=== PATIENT | male | born 1980 | race Caucasian/White ===

== ENCOUNTER 2020-12-03 13:40 | Emergency (ER) | payer MEDICARE, OTHER, SELFPAY ==
--- NOTE | ~2020-12-03 | XR_ITS ---
EXAMINATION: XR CHEST CLINICAL INFORMATION: Fevers COMPARISON: None TECHNIQUE: Frontal view of the chest was obtained. FINDINGS: No significant abnormality is noted involving the heart, lungs, mediastinum, bony thorax or soft tissues. XR/XR chest 1V IMPRESSION: Unremarkable examination.
[2020-12-03 14:01] VITALS: BP 110/71; PULSE 90; RESP 18; TEMP 38.2; O2SAT 98; BMI 21.1
--- NOTE | 2020-12-03 14:07 | ED.FEVER ---
HPI - Fever General Chief Complaint: Fever Stated Complaint: FEVER Time Seen by Provider: 12/03/20 14:07 Source: patient Mode of arrival: wheelchair Limitations: no limitations History of Present Illness HPI Narrative: 40 yo male with suprapubic cath and C5 SCI in comes in with c/o fevers x 1-2 days with body aches, he wants to make sure he doesn't have COVID as his is 25 weeks elicited complaint: fever Pertinent past history: other (C5 SCI) Onset (ago): day(s) (1 to 2) Exacerbating factors: nothing Relieving factors: nothing Associated symptoms: myalgias and nasal congestion Treatments prior to arrival fever: acetaminophen (last night) Related Data Previous Rx's Medication Instructions Recorded baclofen 10 mg tablet 25 mg PO Q6H PRN #900 tab 09/15/20 Allergies Allergy/AdvReac Type Severity Reaction Status Date / Time No Known Allergies Allergy Verified 10/31/20 17:59 Review of Systems Review of Systems: Constitutional : positive Fever, positive Chills, no fatigue, no Malaise ENT/Mouth : no sore throat, pos runny nose Eyes: No Discharge Cardiovascular : No Chest Pain, No SOB Respiratory : No Cough, No Sputum Gastrointestinal : No Nausea, No Vomiting, No Diarrhea Genitourinary : No Dysuria, No Urinary Frequency Musculoskeletal : positive Myalgia Skin : No rash Neuro : No Headache PMFSH Past Medical History Attestation statement: The following information was validated with the patient. 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 Mother No problems noted. Social History Social History Alcohol intake: current Alcohol intake frequency: holidays/special occasions only Smoking Status: Never smoker Advance Directives: No Advance Directives Information Provided: No Physical Exam Vital Signs: Vital Signs: Last Vital Signs Temp 100.7 F H 12/03/20 14:01 Pulse 90 12/03/20 14:01 Resp 18 12/03/20 14:01 BP 110/71 12/03/20 14:01 Pulse Ox 98 12/03/20 14:01 Body Mass Index 21.1 Appearance: Alert. Oriented X3. No acute distress. Eyes: Pupils equal, round and reactive to light. ENT: Pharynx normal. Neck: Normal inspection. Neck supple. CVS: Normal heart rate and rhythm. Pulses normal. Respiratory: No respiratory distress. Breath sounds normal. Abdomen: Soft and nontender. Skin: Skin warm and dry. Neuro: Oriented X 3. WC for C5 injury Psych: normal affect Course Course Course Narrative: patient still does not want further workup after negative CXR and covid - wants to go home MDM - Fever MDM Narrative Medical decision making narrative: very pleasant 40 yo male with C5 SCI here with fevers and runny nose - the patient does not want a workup I discussed given his injury that we should do labs, urine (given suprapubic cath), CXR for pneumonia, COVID swab - the patient is well educated, alert and oriented x 3 and only wants a CXR and COVID swab at this time, he states he will monitor himself while at home. Lab Data Labs: Lab Results 12/03/20 Range/Units 14:51 Coronavirus (PCR) NEGATIVE (Negative) Influenza Type A (PCR) NEGATIVE (Negative) Influenza Type B (PCR) NEGATIVE (Negative) RSV RNA Qual (PCR) NEGATIVE (Negative) Discharge Plan Discharge Clinical Impression: Fever Patient Disposition: Home, Self-Care Instructions: Fever in Adults (ED) Additional Instructions: return to ED for any worsening symptoms or concerns your chest xray was negative for pneumonia Prescriptions: No Action baclofen 10 mg tablet 25 mg PO Q6H PRN (Reason: for muscle spasm) Qty: 900 RF: 1 Referrals: Alfonso Quiroz MD [Primary Care Provider] - 2 days
[2020-12-03] MEDS: Acetaminophen 325 MG TABLET 650 MG PO (14:46)
[2020-12-03 15:42] LABS: Influenza A PCR NEGATIVE (Negative); Influenza B PCR NEGATIVE (Negative); Resp Syncy Virus RNA Qual PCR NEGATIVE (Negative); SARS COV2 PCR INHOUSE NEGATIVE (Negative)
== END 2020-12-03 16:16 | disposition home or self-care (01) ==
PROVIDERS: Emergency Provider Emergency Medicine; PCP Internal Medicine
DX: R50.9 Fever, unspecified (principal); Z20.822 Contact with and (suspected) exposure to COVID-19; Z79.899 Other long term (current) drug therapy
CPT/HCPCS: 0241U; 36415; 71045; 99283

== ENCOUNTER 2021-10-09 10:08 | Outpatient (REF) | payer MEDICARE, OTHER, SELFPAY ==
[2021-10-09 11:18] LABS: HBc Num1 0.07 S/CO (0.00-0.79); HBsAGNum1 0.25 S/CO (0.00-0.99); Hepatitis B Core Antibody Nonreactive (Nonreactive); Hepatitis B Surface Antigen Negative (Negative)
[2021-10-09 11:24] LABS: HBS Num1 10.73 mIU/mL (0-7.99)
[2021-10-09 13:46] LABS: HBS Num2 11.46 mIU/mL (0-7.99); HBS Num3 11.66 mIU/mL (0-7.99); ~Hepatitis B Surface Antibody GRAYZONE (Nonreactive)
[2021-10-11 05:29] LABS: Rubella IgG Antibody 3.67 Index; Varicella IgG Antibody >4000.00 index
[2021-10-11 21:17] LABS: TS Negative Control Passed; TS Panel A 0; TS Panel B 0; TS Positive Control Passed; TSpotTB Negative (Negative)
== END 2021-10-09 10:09 | disposition home or self-care (01) ==
LOC: HO.LAB 10:08
PROVIDERS: PCP Internal Medicine; Visit Provider Internal Medicine
DX: Z01.84 Encounter for antibody response examination (principal); Z11.1 Encounter for screening for respiratory tuberculosis
CPT/HCPCS: 36415; 86481; 86704; 86706; 86735; 86762; 86765; 86787; 87340

== ENCOUNTER 2021-11-21 10:10 | Outpatient (REF) | payer MEDICARE, OTHER, SELFPAY ==
[2021-11-24 15:57] LABS: Transglutaminase Ab IgG 1.7 U/mL
[2021-11-26 14:42] LABS: Endomysial IgA Antibody Positive (Negative)
[2021-11-26 14:57] LABS: Endomysial Titer 1:40 titer (<1:5)
== END 2021-11-21 10:11 | disposition home or self-care (01) ==
LOC: HO.LAB 10:10
PROVIDERS: PCP Internal Medicine; Visit Provider Internal Medicine
DX: K90.0 Celiac disease (principal); R19.7 Diarrhea, unspecified
CPT/HCPCS: 36415; 86231; 86364

== ENCOUNTER 2022-01-25 07:34 | Outpatient (REF) | payer MEDICARE, OTHER, SELFPAY ==
[2022-01-25 11:20] LABS: MANUAL DIFF FLAG NO
[2022-01-25 11:28] LABS: Basophils Percent Auto 0.5 % (0-2); Eosinophils Absolute Auto 0.2 X10*3/uL (0.0-0.4); Eosinophils Percent Auto 4.3 % (0-4); Hematocrit 42.2 % (42.0-52.0); Hemoglobin 14.6 g/dl (14.0-18.0); Lymphocytes Absolute Auto 1.9 X10*3/uL (1.2-4.9); Lymphocytes Percent Auto 42.6 % (20-40); Mean Corpuscular HGB Conc 34.6 g/dl (31.0-36.0); Mean Corpuscular Hemoglobin 30.7 pg (27.0-33.0); Mean Corpuscular Volume 88.7 fL (80.0-98.0); Mean Platelet Volume 10.7 fL (9.4-12.4); Monocytes Absolute Auto 0.4 X10*3/uL (0.1-1.2); Monocytes Percent Auto 8.5 % (2-11); Neutrophils Absolute Auto 1.9 x10*3/uL (2.0-8.3); Neutrophils Percent Auto 44.1 % (45-73); Platelet Count 164 X10*3/uL (160-400); Red Blood Count 4.76 X10*6/uL (4.60-5.80); White Blood Count 4.4 X10*3/uL (4.8-10.8)
[2022-01-25 12:03] LABS: TSH reflex Free T4 1.75 uIU/mL (0.32-4.0); Vitamin D 25-OH Total 6.4 ng/mL (>30)
[2022-01-25 12:09] LABS: Alanine Aminotransferase 22 U/L (0-40); Albumin Level 3.9 g/dL (3.5-5.0); Alkaline Phosphatase 64 U/L (39-117); Anion Gap 11 (12-20); Aspartate Amino Transferase 18 U/L (5-37); Bilirubin Total 0.5 mg/dL (0.0-1.0); Blood Urea Nitrogen 14 mg/dL (9-16); Calcium 8.9 mg/dL (8.4-10.2); Carbon Dioxide 27 mmol/L (22-29); Chloride 104 mmol/L (96-108); Cholesterol 131 mg/dL; Estimated Glomerular Filt Rate > 60; Glucose Fasting 98 mg/dL (60-99); HDL Cholesterol 31 mg/dL; LDL Cholesterol Calculated 85 mg/dl; Potassium 4.3 mmol/L (3.3-5.1); Sodium 138 mmol/L (135-145); Total Protein 7.1 g/dL (6.5-8.0); Triglycerides 79 mg/dL
[2022-01-25 12:40] LABS: Folate 3.1 ng/mL (> or = 4.0); Vitamin B12 483 pg/mL (200-900)
[2022-01-27 08:42] LABS: Gliadin Deamidated IgG Ab 145.5 U/mL
== END 2022-01-25 07:35 | disposition home or self-care (01) ==
LOC: HO.HMGCLDS 07:34
PROVIDERS: Visit Provider Internal Medicine
DX: Z00.00 Encounter for general adult medical examination without abnormal findings (principal); K59.00 Constipation, unspecified; E55.9 Vitamin D deficiency, unspecified; E53.8 Deficiency of other specified B group vitamins
CPT/HCPCS: 36415; 80053; 80061; 82306; 82607; 82746; 84443; 85025; 86258

== ENCOUNTER 2022-11-02 15:41 | Emergency (ER) | payer MEDICARE, OTHER, SELFPAY ==
--- NOTE | ~2022-11-02 | XR_ITS ---
EXAMINATION: XR ABDOMEN KUB CLINICAL INDICATION: Constipation. Lower abdominal pain. COMPARISON: 01/16/2022 TECHNIQUE: AP view of the abdomen. FINDINGS: Moderate to large volume of stool is evident throughout the colon with a large stool ball at the rectum. Nondilated bowel gas pattern. No gross evidence of pneumoperitoneum. An IVC filter overlies the right aspect of the L2 vertebral body. No pathologic calcifications are identified. A suprapubic catheter is in place. No acute osseous findings. XR/XR KUB IMPRESSION: Moderate to large volume of stool throughout the colon.
[2022-11-02 16:20] VITALS: BP 169/119; PULSE 94; RESP 20; TEMP 36.8; O2SAT 96; BMI 19.8
--- NOTE | 2022-11-02 16:21 | ED_ITS ---
HPI - Abdominal Pain General Chief Complaint: General Medical <Brianne Haley CNP - Last Filed: 11/02/22 16:27> Stated Complaint: Constipation <Brianne Haley CNP - Last Filed: 11/02/22 16:27> Time Seen by Provider: 11/02/22 16:48 <Brianne Haley CNP - Last Filed: 11/02/22 16:27> Source: patient <Sharona Peterson NP - Last Filed: 11/03/22 00:33> Mode of arrival: wheelchair <Sharona Peterson NP - Last Filed: 11/03/22 00:33> Limitations: physical limitation (Quadriplegia) <Sharona Peterson NP - Last Filed: 11/03/22 00:33> History of Present Illness HPI narrative: 42-year-old male with quadriplegia and dystonia presents for constipation. He states he has been constipated for several days and feels that he needs to be disimpacted. <Sharona Peterson NP - Last Filed: 11/03/22 00:33> MD elicited complaint: abdominal pain <Sharona Peterson NP - Last Filed: 11/03/22 00:33> Pertinent past history: constipation <Sharona Peterson NP - Last Filed: 11/03/22 00:33> Onset (ago): day(s) (5) <Sharona Peterson NP - Last Filed: 11/03/22 00:33> Pain Consistency: constant <Sharona Peterson NP - Last Filed: 11/03/22 00:33> Location: diffuse <Sharona Peterson NP - Last Filed: 11/03/22 00:33> Severity: moderate <Sharona Peterson NP - Last Filed: 11/03/22 00:33> Quality: cramping, aching and fullness <Sharona Peterson NP - Last Filed: 11/03/22 00:33> Relieving factors: nothing <Sharona Peterson NP - Last Filed: 11/03/22 00:33> Associated symptoms: denies other symptoms <Sharona Peterson NP - Last Filed: 11/03/22 00:33> Related Data Home Medications: Home Medications Medication Instructions Recorded Confirmed solifenacin 10 mg tablet 10 mg PO DAILY 12/06/21 12/06/21 vibegron 75 mg tablet (Gemtesa) mg PO DAILY 07/07/22 Previous Rx's Medication Instructions Recorded miscellaneous medical supply 1 ea miscellaneous DAILY spinal 03/19/22 cord injury 12 months #1 ea baclofen 10 mg tablet 25 mg PO Q6H PRN for muscle spasm 04/19/22 #900 tabs hydrocortisone acetate 25 mg 25 mg WA BID #12 ea 07/07/22 rectal suppository (Anusol-HC) <Brianne Haley CNP - Last Filed: 11/02/22 16:27> Allergies/Adverse Reactions: Allergies Allergy/AdvReac Type Severity Reaction Status Date / Time No Known Allergies Allergy Verified 07/07/22 10:39 <Brianne Haley CNP - Last Filed: 11/02/22 16:27> Review of Systems Review of Systems Constitutional: No Fever, No Chills Cardiovascular: No Chest Pain, No SOB Respiratory: No Cough, No Dyspnea Gastrointestinal: No Nausea, No Vomiting, No Diarrhea, positive abdominal Pain, positive constipation Genitourinary: Chronic Finney Musculoskeletal: No joint pain, No Myalgias, No Joint Swelling Skin: No Skin lacerations, No rash Neuro: Quadriplegia <Sharona Peterson NP - Last Filed: 11/03/22 00:33> Yes all other systems are reviewed and are negative <Sharona Peterson NP - Last Filed: 11/03/22 00:33> PMFSH Past Medical History Attestation statement: The following information was validated with the patient. <Sharona Peterson NP - Last Filed: 11/03/22 00:33> Source: old records reviewed <Sharona Peterson NP - Last Filed: 11/03/22 00:33> Medical History: Medical History Atelectasis of left lung Celiac disease Cervical spinal cord injury (~2001) Hypotonic bladder Hypotonic neurogenic bladder Quadriplegia following spinal cord injury Skin rash Spinal cord injury Urinary bladder stone <Brianne Haley CNP - Last Filed: 11/02/22 16:27> Surgical History: Surgical History History of fusion of cervical spine Status post cystoscopy (~10/06/20) <Brianne Haley CNP - Last Filed: 11/02/22 16:27> Family History Family History: Family History Father No problems noted. Mother No problems noted. Other Mental health problem <Biranne Haley CNP - Last Filed: 11/02/22 16:27> Social History Social History: Social History Alcohol intake: never Patient Tobacco Use Status: Never used Tobacco Smoked in Last 30 Days: No Second Hand Smoke Exposure: No Use of substances other than those prescribed or required for medical reasons: No Advance Directives: No Advance Directives Information Provided: Yes <Brianne Haley CNP - Last Filed: 11/02/22 16:27> Physical Exam ED Vital Signs: Vital Signs - 24 hr 11/02/22 16:20 11/02/22 18:30 Temperature 98.3 F 98.2 F Pulse Rate 94 79 Respiratory Rate 20 12 Blood Pressure 169/119 H 127/83 Pulse Oximetry 96 96 Oxygen Delivery Method Room Air Room Air BMI result Body Mass Index 19.8 <Brianne Haley CNP - Last Filed: 11/02/22 16:27> Vital Signs - 24 hr 11/02/22 16:20 11/02/22 18:30 Temperature 98.3 F 98.2 F Pulse Rate 94 79 Respiratory Rate 20 12 Blood Pressure 169/119 H 127/83 Pulse Oximetry 96 96 Oxygen Delivery Method Room Air Room Air BMI result Body Mass Index 19.8 <Sharona Peterson NP - Last Filed: 11/03/22 00:33> Appearance: Alert. Oriented X3. No acute distress. Eyes: Pupils equal, round and reactive to light. ENT: Pharynx normal. Neck: Normal inspection. Neck supple. CVS: Normal heart rate and rhythm. Pulses normal. Respiratory: No respiratory distress. Breath sounds normal. Abdomen: Soft and nontender. Skin: Skin warm and dry. Normal skin color. Normal skin turgor. Neuro: Cranial nerves 2-12 intact <Sharona Peterson NP - Last Filed: 11/03/22 00:33> Course Course Course Narrative: This is an RME: Additional HPI, ROS, PE not included below will be deferred to primary provider. Patient is a 42-year-old male who presents emergency department for evaluation of constipation, diffuse lower abdominal pain, elevated blood pressure, headaches, fevers, chills. 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 Reports a large bowel movement 3 days ago, but despite the use of medications he continues to feel very constipated. Has a chronic suprapubic catheter. Denies nausea, vomiting, chest pain, shortness of breath, cough, upper respiratory symptoms. Plan: Labs, KUB, urinalysis. <Brianne Haley CNP - Last Filed: 11/02/22 16:27> This is an RME: Additional HPI, ROS, PE not included below will be deferred to primary provider. Patient is a 42-year-old male who presents emergency department for evaluation of constipation, diffuse lower abdominal pain, elevated blood pressure, headaches, fevers, chills. 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 Reports a large bowel movement 3 days ago, but despite the use of medications he continues to feel very constipated. Has a chronic suprapubic catheter. Denies nausea, vomiting, chest pain, shortness of breath, cough, upper respiratory symptoms. Plan: Labs, KUB, urinalysis. 42-year-old male presents for constipation. 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 He has had a chronic Finney in place since then. Alert oriented x4, pleasant. KUB indicates large stool burden, fleets enema unsuccessful. Plan of care is for digital disimpaction. This BUSINESS DEVELOPMENT OFFICER and cardiac monitor technician present as filling station laborer, large stools disimpacted from rectal vault. Patient does have large hemorrhoids and had some bleeding, order for dibucaine and hydrocortisone ointment for comfort. Urinalysis is positive for leukocyte esterase however this patient has had a chronic Finney and is colonized. No further treatment required for this finding. <Sharona Peterson NP - Last Filed: 11/03/22 00:33> Medical Decision Making Differential Diagnosis Differential Diagnoses: The differential diagnosis associated with the presentation includes <Sharona Peterson NP - Last Filed: 11/03/22 00:33> Constipation, obstipation <Anatolymely Kristen, BUSINESS DEVELOPMENT OFFICER - Last Filed: 11/03/22 00:33> Lab Data MDM Lab Attestation statement: I reviewed the patient's lab results. <Sharona Peterson NP - Last Filed: 11/03/22 00:33> Result Diagrams: 11/02/22 16:41 11/02/22 16:41 <Brianne Haley, DEMAND GENERATOR MANAGER - Last Filed: 11/02/22 16:27> Labs: Lab Results 11/02/22 11/02/22 11/02/22 Range/Units 16:41 16:41 16:53 WBC 9.1 (4.8-10.8) X10*3/uL RBC 5.59 (4.60-5.80) X10*6/uL Hgb 16.3 (14.0-18.0) g/dl Hct 47.5 (42.0-52.0) % MCV 85.0 (80.0-98.0) fL MCH 29.2 (27.0-33.0) pg MCHC 34.3 (31.0-36.0) g/dl RDW 12.5 (11.0-16.0) % Plt Count 162 (160-400) X10*3/uL MPV 9.3 L (9.4-12.4) fL Immature Gran % (Auto) 0.2 (0.0-0.4) % Neut % (Auto) 64.3 (45-73) % Lymph % (Auto) 23.4 (20-40) % [place] % (Auto) 9.0 (2-11) % Eos % (Auto) 2.9 (0-4) % Baso % (Auto) 0.2 (0-2) % Lymph # (Auto) 2.1 (1.2-4.9) X10*3/uL [place] # (Auto) 0.8 (0.1-1.2) X10*3/uL Eos # (Auto) 0.3 (0.0-0.4) X10*3/uL Baso # (Auto) 0.0 (0.0-0.2) X10*3/uL Abs Immat Gran (auto) 0.02 (0.00-0.03) X10*3/uL Absolute Neuts (auto) 5.8 (2.0-8.3) x10*3/uL Absolute Nucleated RBC 0.000 (0.0-0.012) X10*3/uL Nucleated RBC % (auto) 0.0 (0.0-0.2) /100WBC Sodium 140 (135-145) mmol/L Potassium 4.0 (3.3-5.1) mmol/L Chloride 105 (96-108) mmol/L Carbon Dioxide 25 (22-29) mmol/L Anion Gap 14 (12-20) BUN 8 L (9-16) mg/dL Creatinine 0.70 (0.5-1.4) mg/dL Estim Creat Clear Calc 115.8 Estimated GFR > 60 Random Glucose 94 (60-115) mg/dL Calcium 9.2 (8.4-10.2) mg/dL Total Bilirubin 0.7 (0.0-1.0) mg/dL AST 17 (5-37) U/L ALT 18 (0-40) U/L Alkaline Phosphatase 84 (39-117) U/L Total Protein 7.6 (6.5-8.0) g/dL Albumin 4.4 (3.5-5.0) g/dL Lipase 8 (8-78) U/L Urine Color Yellow Urine Appearance Cloudy Urine pH 8.5 (5.0-9.0) Ur Specific [place] 1.010 (1.005-1.025) Urine Protein 100 (2+) H (Neg-Trace) mg/dL Urine Glucose (UA) Negative (Negative) mg/dL Urine Ketones Negative (Negative) mg/dL Urine Blood Large (3+) H (Negative) Urine Nitrite Negative (Negative) Ur Leukocyte Esterase Large (3+) H (Negative) Urine RBC 11-20 H (0-2) /HPF Urine WBC 11-20 H (0-5) /HPF Ur Squamous Epith Cells 0-2 (0-2) /HPF Urine Bacteria 4+ (None Seen) Hyaline Casts 0-2 (0-2) /LPF <Brianne Concepcionml Haley, DEMAND GENERATOR MANAGER - Last Filed: 11/02/22 16:27> Lab Results 11/02/22 11/02/22 11/02/22 Range/Units 16:41 16:41 16:53 WBC 9.1 (4.8-10.8) X10*3/uL RBC 5.59 (4.60-5.80) X10*6/uL Hgb 16.3 (14.0-18.0) g/dl Hct 47.5 (42.0-52.0) % MCV 85.0 (80.0-98.0) fL MCH 29.2 (27.0-33.0) pg MCHC 34.3 (31.0-36.0) g/dl RDW 12.5 (11.0-16.0) % Plt Count 162 (160-400) X10*3/uL MPV 9.3 L (9.4-12.4) fL Immature Gran % (Auto) 0.2 (0.0-0.4) % Neut % (Auto) 64.3 (45-73) % Lymph % (Auto) 23.4 (20-40) % [place] % (Auto) 9.0 (2-11) % Eos % (Auto) 2.9 (0-4) % Baso % (Auto) 0.2 (0-2) % Lymph # (Auto) 2.1 (1.2-4.9) X10*3/uL [place] # (Auto) 0.8 (0.1-1.2) X10*3/uL Eos # (Auto) 0.3 (0.0-0.4) X10*3/uL Baso # (Auto) 0.0 (0.0-0.2) X10*3/uL Abs Immat Gran (auto) 0.02 (0.00-0.03) X10*3/uL Absolute Neuts (auto) 5.8 (2.0-8.3) x10*3/uL Absolute Nucleated RBC 0.000 (0.0-0.012) X10*3/uL Nucleated RBC % (auto) 0.0 (0.0-0.2) /100WBC Sodium 140 (135-145) mmol/L Potassium 4.0 (3.3-5.1) mmol/L Chloride 105 (96-108) mmol/L Carbon Dioxide 25 (22-29) mmol/L Anion Gap 14 (12-20) BUN 8 L (9-16) mg/dL Creatinine 0.70 (0.5-1.4) mg/dL Estim Creat Clear Calc 115.8 Estimated GFR > 60 Random Glucose 94 (60-115) mg/dL Calcium 9.2 (8.4-10.2) mg/dL Total Bilirubin 0.7 (0.0-1.0) mg/dL AST 17 (5-37) U/L ALT 18 (0-40) U/L Alkaline Phosphatase 84 (39-117) U/L Total Protein 7.6 (6.5-8.0) g/dL Albumin 4.4 (3.5-5.0) g/dL Lipase 8 (8-78) U/L Urine Color Yellow Urine Appearance Cloudy Urine pH 8.5 (5.0-9.0) Ur Specific [place] 1.010 (1.005-1.025) Urine Protein 100 (2+) H (Neg-Trace) mg/dL Urine Glucose (UA) Negative (Negative) mg/dL Urine Ketones Negative (Negative) mg/dL Urine Blood Large (3+) H (Negative) Urine Nitrite Negative (Negative) Ur Leukocyte Esterase Large (3+) H (Negative) Urine RBC 11-20 H (0-2) /HPF Urine WBC 11-20 H (0-5) /HPF Ur Squamous Epith Cells 0-2 (0-2) /HPF Urine Bacteria 4+ (None Seen) Hyaline Casts 0-2 (0-2) /LPF <Sharona Peterson NP - Last Filed: 11/03/22 00:33> Independent Interpretation I performed an independent interpretation of an: Plain X-Ray <Sharona Peterson NP - Last Filed: 11/03/22 00:33> Radiology Impression Discussion of test interpretation with radiology: I have reviewed the radiologist's reading. <Sharona Peterson NP - Last Filed: 11/03/22 00:33> Radiologist Impression: EXAMINATION: XR ABDOMEN KUB CLINICAL INDICATION: Constipation. Lower abdominal pain.? COMPARISON: 01/16/2022? TECHNIQUE: AP view of the abdomen. FINDINGS: Moderate to large volume of stool is evident throughout the colon with a large stool ball at the rectum. Nondilated bowel gas pattern. No gross evidence of pneumoperitoneum. An IVC filter overlies the right aspect of the L2 vertebral body. No pathologic calcifications are identified. A suprapubic catheter is in place. No acute osseous findings. XR/XR KUB IMPRESSION: Moderate to large volume of stool throughout the colon. <Sharona Peterson NP - Last Filed: 11/03/22 00:33> External Record Review External record reviewed: Outpatient record <Sharona Peterson NP - Last Filed: 11/03/22 00:33> Chronic Conditions Patient?s care impacted by: Other (Quadriplegia, neurogenic bladder, autonomic dysreflexia) <Sharona Peterson NP - Last Filed: 11/03/22 00:33> Medications Administered Discontinued Medications Generic Name Dose Route Start Last Admin Trade Name Freq PRN Reason Stop Dose Admin Sodium Biphosphate/Sodium Phosphate 133 ml 11/02/22 16:56 11/02/22 17:23 Sodium Phosphate,[place]-Dibasic 133 Ml Enema [place] 11/02/22 16:57 133 ml ONCE ONE Administration <Brianne Haley CNP - Last Filed: 11/02/22 16:27> Medications Administered Discontinued Medications Generic Name Dose Route Start Last Admin Trade Name Freq PRN Reason Stop Dose Admin Sodium Biphosphate/Sodium Phosphate 133 ml 11/02/22 16:56 11/02/22 17:23 Sodium Phosphate,[place]-Dibasic 133 Ml Enema [place] 11/02/22 16:57 133 ml ONCE ONE Administration <Sharona Peterson NP - Last Filed: 11/03/22 00:33> Discharge Plan Discharge Clinical Impression: Quadriplegia following spinal cord injury, Constipation, Bleeding hemorrhoids <Brianne Haley CNP - Last Filed: 11/02/22 16:27> Patient Disposition: Home, Self-Care <Brianne Haley CNP - Last Filed: 11/02/22 16:27> Instructions: Constipation (ED), Hemorrhoids (ED), Thrombosed Hemorrhoid (ED) <Brianne Haley CNP - Last Filed: 11/02/22 16:27> Additional Instructions: You were evaluated for constipation. We digitally disimpacted you. Your hemorrhoids are irritated and bleeding. Used dibucaine and hydrocortisone as directed. Thank you for choosing this emergency department for evaluation. Please follow-up with primary care physician as needed. Return to the emergency department for any new, concerning, or worsening symptoms. <Brianne Haley CNP - Last Filed: 11/02/22 16:27> Prescriptions: No Action miscellaneous medical supply Misc 1 ea miscellaneous DAILY 360 Days Qty: 1 0RF Rx Instructions: Wheelchair Cushion baclofen 10 mg tablet 25 mg PO Q6H PRN (Reason: for muscle spasm) Qty: 900 1RF solifenacin 10 mg tablet 10 mg PO DAILY Label Comments: [facility] - for bladder spasms Gemtesa 75 mg tablet PO DAILY hydrocortisone acetate [Anusol-HC] 25 mg suppository 25 mg [place] BID Qty: 12 0RF Rx Instructions: Maximum of 4 doses a week for 2 weeks <Brianne Haley CNP - Last Filed: 11/02/22 16:27> Interventions: ED Discharge Assessment Last Done: 11/02/22 19:30 <Brianne Haley CNP - Last Filed: 11/02/22 16:27> Discharge Date/Time: 11/02/22 19:33 <Brianne Haley CNP - Last Filed: 11/02/22 16:27>
[2022-11-02 16:45] LABS: MANUAL DIFF FLAG NO
[2022-11-02 16:46] LABS: Basophils Percent Auto 0.2 % (0-2); Eosinophils Absolute Auto 0.3 X10*3/uL (0.0-0.4); Eosinophils Percent Auto 2.9 % (0-4); Hematocrit 47.5 % (42.0-52.0); Hemoglobin 16.3 g/dl (14.0-18.0); Imm Gran Abs Auto 0.02 X10*3/uL (0.00-0.03); Imm Gran Pct Auto 0.2 % (0.0-0.4); Lymphocytes Absolute Auto 2.1 X10*3/uL (1.2-4.9); Lymphocytes Percent Auto 23.4 % (20-40); Mean Corpuscular HGB Conc 34.3 g/dl (31.0-36.0); Mean Corpuscular Hemoglobin 29.2 pg (27.0-33.0); Mean Platelet Volume 9.3 fL (9.4-12.4); Monocytes Absolute Auto 0.8 X10*3/uL (0.1-1.2); Neutrophils Absolute Auto 5.8 x10*3/uL (2.0-8.3); Neutrophils Percent Auto 64.3 % (45-73); Platelet Count 162 X10*3/uL (160-400); Red Blood Count 5.59 X10*6/uL (4.60-5.80); Red Cell Distribution Width 12.5 % (11.0-16.0); White Blood Count 9.1 X10*3/uL (4.8-10.8)
[2022-11-02 17:04] LABS: Alanine Aminotransferase 18 U/L (0-40); Albumin Level 4.4 g/dL (3.5-5.0); Alkaline Phosphatase 84 U/L (39-117); Anion Gap 14 (12-20); Aspartate Amino Transferase 17 U/L (5-37); Bilirubin Total 0.7 mg/dL (0.0-1.0); Blood Urea Nitrogen 8 mg/dL (9-16); Calcium 9.2 mg/dL (8.4-10.2); Carbon Dioxide 25 mmol/L (22-29); Chloride 105 mmol/L (96-108); Creatinine Clr Calc Pharmacy 115.8; Estimated Glomerular Filt Rate > 60; Glucose Random 94 mg/dL (60-115); Lipase 8 U/L (8-78); Sodium 140 mmol/L (135-145); Total Protein 7.6 g/dL (6.5-8.0)
[2022-11-02 17:20] LABS: Appearance Urine Cloudy; Color Urine Yellow; Glucose Urine UA Negative (Negative); Leukocyte Esterase Urine Large (3+) (Negative); Nitrite Urine Negative (Negative); PH 8.5 (5.0-9.0); UMIC TRIGGER UACC YES; Urine Blood Large (3+) (Negative); Urine Ketones Negative (Negative); Urine Protein 100 (2+) mg/dL (Neg-Trace)
[2022-11-02] MEDS: Sodium Phosphate,Mono-Dibasic 133 ML ENEMA PR (17:23)
[2022-11-02 17:34] LABS: Bacteria Urine 4+ (None Seen); Hyaline Casts Urine 0-2 /LPF (0-2); Squamous Epithelial Cell Urine 0-2 /HPF (0-2); UACC Culture Trigger YES
[2022-11-02 18:30] VITALS: BP 127/83; PULSE 79; RESP 12; TEMP 36.8; O2SAT 96
--- NOTE | 2022-11-02 19:32 | PC.NURSE ---
Discharge instructions given and explained to pt. Pt is wheelchair bound. Pt left with , no apparent distress, alert and oriented, medicated on discharge.
== END 2022-11-02 19:33 | disposition home or self-care (01) ==
PROVIDERS: Nurse Practitioner Family; Emergency Provider Emergency Medicine; PCP Internal Medicine
DX: K59.00 Constipation, unspecified (principal); R10.30 Lower abdominal pain, unspecified; Z79.899 Other long term (current) drug therapy
CPT/HCPCS: 36415; 74018; 80053; 81001; 83690; 85025; 87086; 99284

== ENCOUNTER 2022-11-04 09:48 | Emergency (ER) | payer MEDICARE, OTHER, SELFPAY ==
[2022-11-04 09:58] VITALS: BP 175/104; PULSE 63; RESP 16; TEMP 36.6; O2SAT 98; BMI 19.8
[2022-11-04 10:50] VITALS: BP 145/91; PULSE 54; RESP 14; TEMP 36.5; O2SAT 97
--- NOTE | 2022-11-04 11:10 | PC.NURSE ---
pt is a/o x 4 no sob/mauricio noted speaks in full sentences. lungs - cta. heart sounds regular. abd soft and non-tender. bx + x 4 quads. no edema noted. bladder appears non-distended. pt has a suprapubic cath which appears to be draining clear yellow urine. urine to be sent to lab. pt states minimal drainage from suprabic cath since saturday.
[2022-11-04 11:24] LABS: Appearance Urine Cloudy; Color Urine Yellow; Glucose Urine UA Negative (Negative); Leukocyte Esterase Urine Large (3+) (Negative); Nitrite Urine Negative (Negative); PH 7.5 (5.0-9.0); UMIC TRIGGER UACC YES; Urine Blood Moderate (2+) (Negative); Urine Ketones Negative (Negative); Urine Protein 100 (2+) mg/dL (Neg-Trace)
[2022-11-04 11:34] LABS: Bacteria Urine 4+ (None Seen); Other Crystals Urine Present; Squamous Epithelial Cell Urine 0-2 /HPF (0-2); UACC Culture Trigger YES; WBC Urine >50 /HPF (0-5)
--- NOTE | 2022-11-04 11:50 | ED.MALEGU ---
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 The patient was here on Saturday11/02/2022 for constipation requiring disimpact and enema. He states that since he was constipated he was having spasms of his lower extremities as well as spasm of the bladder. Patient has a chronic indwelling 24 Belgian Finney catheter he states that he has been draining less fluid and he is concerned that the catheter is malfunctioned. He states that this happened in the past he has required a Finney catheter change. The patient states that he has had some slight fatigue and sweats. He denied fever, chills, nausea, vomiting. Related Data Home Medications Medication Instructions Recorded Confirmed solifenacin 10 mg tablet 10 mg PO DAILY 12/06/21 12/06/21 vibegron 75 mg tablet (Gemtesa) mg PO DAILY 07/07/22 Previous Rx's Medication Instructions Recorded miscellaneous medical supply 1 ea miscellaneous DAILY spinal 03/19/22 cord injury 12 months #1 ea baclofen 10 mg tablet 25 mg PO Q6H PRN for muscle spasm 04/19/22 #900 tabs hydrocortisone acetate 25 mg 25 mg VT BID #12 ea 07/07/22 rectal suppository (Anusol-HC) Allergies Allergy/AdvReac Type Severity Reaction Status Date / Time No Known Allergies Allergy Verified 07/07/22 10:39 Review of Systems Review of Systems: Yes all other systems are reviewed and are negative PMFSH Past Medical History Medical History Atelectasis of left lung Celiac disease Cervical spinal cord injury (~2001) Hypotonic bladder Hypotonic neurogenic bladder Quadriplegia following spinal cord injury Skin rash Spinal cord injury Urinary bladder stone Surgical History History of fusion of cervical spine Status post cystoscopy (~10/06/20) Family History Family History Father No problems noted. Mother No problems noted. Other Mental health problem Social History Social History Alcohol intake: never Patient Tobacco Use Status: Never used Tobacco Smoked in Last 30 Days: No Second Hand Smoke Exposure: No Use of substances other than those prescribed or required for medical reasons: No Advance Directives: No Advance Directives Information Provided: Yes Physical Exam Vital Signs: Vital Signs: Last Vital Signs Temp 97.7 F 11/04/22 10:50 Pulse 54 11/04/22 10:50 Resp 14 11/04/22 10:50 BP 145/91 H 11/04/22 10:50 Pulse Ox 97 11/04/22 10:50 O2 Del Method 11/04/22 10:50 BMI result Body Mass Index 19.8 Vital signs reviewed are normal General: awake, alert, male patient, pleasant, cooperative in no distress Abdominal : The patient has an indwelling Finney catheter which is 24 Belgian, 30 cc balloon. There is no urine leaking around the catheter. Patient's abdomen is nondistended, his normoactive bowel sounds, no localizing tenderness Medical Decision Making Medical Decision Making MDM Narrative: 42-year-old male with a history of quadriplegia secondary to spinal cord injury with neurogenic bladder with a chronic indwelling Finney catheter who presents emergency department for increased bladder spasm and dysfunction of his Finney catheter. Patient has not had any concerning systemic signs for infection. The patient's suprapubic Finney catheter was changed by me. Urine was sent prior to changing the catheter and I will send off a urinalysis on a new urine specimen in the clean Finney bag. 1303: Laboratory interpretation by me: It is urinalysis 2+ blood, 3+ leukocyte esterase. Microscopic 6-10 rbc's, greater than 50 WBCs, 0-2 squamous, crystals present, 4+ bacteria. Urine culture from 11/02/2022 revealed mixed hira. At this time, I do not think the patient has urinary tract infection and the urinalysis most likely represents colonization. The patient will not be treated with antibiotics unless he grows a significant organism out of his urine or if he becomes symptomatic. Patient will be discharged home and advised to follow-up with his urologist for further treatment. Differential Diagnosis Differential diagnosis includes was not limited to urinary tract infection, blocked catheter, Lab Data [facility] Lab Attestation statement: I reviewed the patient's lab results. Please see [facility] for my discussion of the laboratory findings Labs: Lab Results 11/04/22 Range/Units 11:15 Urine Color Yellow Urine Appearance Cloudy Urine pH 7.5 (5.0-9.0) Ur Specific [place] 1.010 (1.005-1.025) Urine Protein 100 (2+) H (Neg-Trace) mg/dL Urine Glucose (UA) Negative (Negative) mg/dL Urine Ketones Negative (Negative) mg/dL Urine Blood Moderate (2+) H (Negative) Urine Nitrite Negative (Negative) Ur Leukocyte Esterase Large (3+) H (Negative) Urine RBC 6-10 H (0-2) /HPF Urine WBC >50 H (0-5) /HPF Ur Squamous Epith Cells 0-2 (0-2) /HPF Other Crystals Present Urine Bacteria 4+ (None Seen) Hyaline Casts 11-20 (0-2) /LPF Independent Historian Clinical information obtained from an independent historian. History obtained from or confirmed by: Spouse Prescription Management I considered prescription management with: Antibiotic Procedures Procedure Narrative Procedure Narrative: Suprapubic catheter change: I did discuss the procedure with the patient he did give me informed verbal consent to proceed. The 24 Belgian 10 cc balloon was inflated with 10 cc in the balloon held pressure without difficulty. The patient's suprapubic stoma/inserted catheter was cleaned with 3 Betadine swabs. 50 cc of sterile water was injected into the patient's bladder to expand the bladder. 10 cc of fluid was removed from the old catheters balloon. Catheter was withdrawn and a new lubricated 24 Belgian Finney catheter was inserted through the stoma without any difficulty. 10 cc of sterile water was injected into the new Finney catheter. The patient tolerated the procedure well. Discharge Plan Discharge Clinical Impression: Blocked suprapubic catheter, Catheter (urine) change required Patient Disposition: Home, Self-Care Additional Instructions: I changed your previous suprapubic catheter and put in a 24 Belgian Finney catheter with a 10 cc balloon. I put 10 cc of sterile water in the balloon. Your urinalysis was positive for bacteria, white blood cells and red blood cells but you are not symptomatic , there we will not treat you with antibiotics at this time unless you grow a significant bacteria out of your urine. Your urinalysis from 11/02/2021 also showed bacteria, white blood cells and red blood cells in you grew mixed hira which is not significant and this suggest that you have colonization of your bladder with bacteria that is not harmful. Follow-up with your urology for further care Please return to the emergency department if your symptoms get worse or if you develop any symptoms that are concerning to you. Prescriptions: No Action miscellaneous medical supply Misc 1 ea miscellaneous DAILY 360 Days Qty: 1 0RF Rx Instructions: Wheelchair Cushion baclofen 10 mg tablet 25 mg PO Q6H PRN (Reason: for muscle spasm) Qty: 900 1RF solifenacin 10 mg tablet 10 mg PO DAILY Label Comments: Vesicare - for bladder spasms Gemtesa 75 mg tablet PO DAILY hydrocortisone acetate [Anusol-HC] 25 mg suppository 25 mg VT BID Qty: 12 0RF Rx Instructions: Maximum of 4 doses a week for 2 weeks
[2022-11-04 13:28] VITALS: BP 92/40; PULSE 76; RESP 17; TEMP 36.5; O2SAT 96
[2022-11-04 13:30] LABS: Appearance Urine Clear; Color Urine Yellow; Glucose Urine UA Negative (Negative); Leukocyte Esterase Urine Moderate (2+) (Negative); Nitrite Urine Negative (Negative); UMIC TRIGGER UACC YES; Urine Blood Moderate (2+) (Negative); Urine Ketones Trace mg/dL (Negative); Urine Protein 100 (2+) mg/dL (Neg-Trace)
[2022-11-04 13:32] LABS: Bacteria Urine None Seen (None Seen); Hyaline Casts Urine 0-2 /LPF (0-2); RBC Urine >20 /HPF (0-2); Squamous Epithelial Cell Urine 0-2 /HPF (0-2); UACC Culture Trigger YES; WBC Urine 21-50 /HPF (0-5)
== END 2022-11-04 13:47 | disposition home or self-care (01) ==
PROVIDERS: Emergency Provider Emergency Medicine Emergency Medical Services; PCP Internal Medicine
DX: N31.9 Neuromuscular dysfunction of bladder, unspecified (principal); K59.00 Constipation, unspecified; T83.098A Other mechanical complication of other urinary catheter, initial encounter; Y73.8 Miscellaneous gastroenterology and urology devices associated with adverse incidents, not elsewhere classified; Y92.9 Unspecified place or not applicable; Z79.899 Other long term (current) drug therapy
CPT/HCPCS: 51702; 81001; 87086; 99284

== ENCOUNTER 2023-12-16 16:03 | Outpatient (AMB) | payer MEDICARE, OTHER, SELFPAY ==
[2023-12-16 16:16] VITALS: BP 122/80; PULSE 66; O2SAT 98
--- NOTE | 2023-12-16 16:16 | A.OFFPC_ITS ---
Vital Signs 12/16/23 16:16 Height 5 ft 8 in BMI Reason not done Patient refused/unable BP 122/80 Blood Pressure Location Lt brachial Position Sitting Pulse 66 Pulse Source Pulse Oximeter Pulse Oximetry (%) 98 Oxygen Delivery Method Room Air Intake Visit Reasons: Annual Exam Front Office Spec Required: No Accompanied by: Self / Same As Patient Allergies No Known Allergies Allergy (Verified 12/16/23 17:14) Medication List - Last Reconciled 12/16/23 by Alfonso Quiroz MD baclofen 25 mg (2.5 x 10 mg) PO Q6H 90 days cholecalciferol (vitamin D3) 50 mcg PO DAILY 90 days methenamine hippurate 1 g PO BID miscellaneous medical supply 1 ea miscellaneous DAILY 12 months nystatin 1 appl topical TID 10 days polyethylene glycol 3350 (Miralax) 17 grams PO DAILY sennosides (senna) 8.6 mg PO BEDTIME solifenacin 10 mg PO DAILY Tobacco use date assessed: 12/16/23 Dental Screening Dental Screen Date: 12/16/23 Did you have a dental visit in the last 12 months?: Yes Did you have a dental problem in the last 6 months where you did not have access to dental care?: No Was dental information given to patient?: Patient has dentist HPI Annual Exam HPI Details Patient comes in today for his annual physical examination States that he feels okay He denies any headaches or dizziness Denies any chest pains, no shortness of breath No nausea /vomiting, no abdominal pain No change in bowel habits noted - he continues to take MiraLax daily and has been able to keep his bowel regimen controlled; still has to take his stool softener (Senna) occasionally when needed He has a urinary catheter in place for his neurogenic bladder related to his spinal cord injury and this is changed regularly by urology every 3 to 4 weeks Patient moves around with a wheelchair as he has quadriplegia arising from an 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 while wrestling back in 2001 He was not able to get his previously ordered labs done prior to today's appointment [facility] Medical History Constipation Vitamin D deficiency Celiac disease Skin rash Urinary bladder stone 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 Mother No problems noted. Other Mental health problem Social History Housing: House Alcohol intake: never Patient Tobacco Use Status: Never used Tobacco e-Cigarette/Vaping Use: Never Used Second Hand Smoke Exposure: No service: No Current occupational status: employed Cognitive needs: No Hearing needs: No Vision needs: No Questionnaire PHQ-9 Over the last 2 weeks, how often have you been bothered by any of the following problems? 1. Little interest or pleasure in doing things: not at all 2. Feeling down, depressed, or hopeless: not at all 3. Trouble falling or staying asleep, or sleeping too much: not at all 4. Feeling tired or having little energy: not at all 5. Poor appetite or overeating: not at all 6. Feeling bad about yourself - or that you are a failure or have let yourself or your family down: not at all 7. Trouble concentrating on things, such as reading the newspaper or watching television: not at all 8. Moving or speaking so slowly that other people could have noticed. Or the opposite - being so fidgety or restless that you have been moving around a lot more than usual: not at all 9. Thoughts that you would be better off or of hurting yourself in some way: not at all Total score: 0 Depression Screening Interpretation: Negative Depression Screening Done: Yes [id number] - PHQ-9 Billing: Yes Source: Developed by Drs. Rudi Will, Lilliam Hilario, Hair Keene and colleagues, with an educational aleshia from [employer]. Thrive Questionnaire Date Thrive assessed: 12/16/23 I am a: Patient What is your living situation today?: I have a steady place to live Within the past 12 months, did the food you bought not last and you didn't have the money to get more?: Never true Within the past 12 months, did you worry whether your food would run out before you got money to buy more?: Never true Do you have trouble paying for medicines?: No Do you have trouble getting transportation to medical appointments?: No Do you have trouble paying your heating and electricity bill?: No Do you have trouble taking care of your child, family member or friend?: No Do you have trouble with day-to-day activities such as bathing, preparing meals, shopping, managing finances, etc.?: No Are you currently unemployed and looking for a job?: No Are you interested in more education?: No Please select the resources that you would like help with: None Currently or been in a relationship where the following occur: no concerns reported THRIVE Score: 0 AUDIT C Alcohol Use Questionnaire (AUDIT-C) 1. How often do you have a drink containing alcohol?: Monthly or less 2. How many drinks containing alcohol do you have on a typical day when you are drinking?: 1 or 2 3. How often do you have six or more drinks on one occasion?: Never Total Score: 1 Score Reviewed/Action Taken: Yes MINE-7 AMB Questionnaire MINE-7 Date MINE - 7 assessed: 12/16/23 Feeling nervous, anxious, or on edge: 0 = Not at all Not being able to stop or control worryin = Not at all Worrying too much about different things: 0 = Not at all Trouble relaxin = Not at all Being so restless that it is hard to sit still: 0 = Not at all Becoming easily annoyed or irritable: 0 = Not at all Feeling afraid as if something awful might happen: 0 = Not at all Total MINE-7 score (0-4 normal; 5-9 mild; 10-14 moderate; 15-21 severe): 0 Source: Developed by Drs. Rudi Will, Lilliam Hilario, Hair Keene and colleagues, with an educational aleshia from [employer]. Review of Systems Const Denies chills, Denies fatigue, Denies fever(s), Denies headache(s) and Denies malaise Eyes Denies blurry vision, Denies change in vision, Denies irritation and Denies itchy eyes ENT Denies dysphagia, Denies dizziness, Denies otalgia, Denies headache(s), Denies nasal congestion, Denies neck pain, Denies odynophagia and Denies sore throat Card Denies chest pain, Denies rapid heart rate, Denies irregular heart rhythm, Denies palpitations and Denies dyspnea Resp Denies chest congestion, Denies cough, Denies dyspnea and Denies wheezing GI Denies abdominal pain, Denies bloating, Denies hematochezia, Denies change in bowel habits, Reports constipation (at times; current Rx help keep this managea ble), Denies dysphagia, Denies heartburn, Denies diarrhea, Denies nausea, Denies odynophagia and Denies vomiting Details: (+) permanent urinary catheter - changed by urology every 3 weeks Denies hematuria, Denies dysuria, Denies testicular mass and Denies testicular pain Musc Denies back pain, Denies arthralgias, Denies joint swelling and Denies neck pain Skin/Breast Denies change in pigmentation, Denies lesions, Reports rash (recurrent, over the inguinal areas) and Denies unusual bruising Neuro Denies dizziness, Denies headache(s) and Denies paresthesias Endo Denies fatigue and Denies palpitations Aller/Immun Denies itchy eyes and Denies wheezing Physical exam (Primary Care) Vital Signs: Last Vital Signs Pulse 66 12/16/23 16:16 BP 122/80 12/16/23 16:16 Pulse Ox 98 12/16/23 16:16 Oxygen Delivery Method Room Air 12/16/23 16:16 Tobacco/Smoking Status: Tobacco use Status Tobacco use date assessed 12/16/23 12/16/23 16:23 Patient Tobacco Use Status Never used Tobacco 12/16/23 16:23 e-Cigarette/Vaping Use Never Used 12/16/23 16:23 PHQ-9: PHQ-9 Score PHQ-9: Total score 0 12/16/23 17:24 Depression Screening Interpretation: Negative Thrive Assessment: Date of Thrive Assessment Date Thrive assessed 12/16/23 12/16/23 16:23 Currently or been in a relationship where the following occur: no concerns reported Const General: no acute distress, alert and awake Orientation/consciousness: patient oriented x3 Limitations: physical limitations (quadriplegic) and wheelchair HENMT Head: Yes normocephalic and Yes atraumatic Ears: external ears normal, TM's normal bilaterally and EAC's normal General nose exam: No nasal discharge present Face and sinus: Yes normal facial exam and Yes sinuses nontender Teeth and gingiva: dentition normal Throat: Yes posterior oropharynx normal and Yes tonsils normal (no TP congestion) Eyes Eyelids: Yes eyelids normal Conjunctivae: conjunctivae normal Pupils: Equal, round and reactive pupils present EOM: EOMs intact bilaterally Neck Neck: Yes no lymphadenopathy and Yes supple Thyroid: Thyroid normal Resp Auscultation: clear to auscultation bilaterally, no rales and no wheezes Cardio Rate: regular rate Rhythm: regular rhythm Heart sounds: no murmurs GI Palpation (GI): Soft to palpation, nontender and No hepatosplenomegaly present Other: (+) permanent urinary catheter General: Yes no CVA tenderness Back/Spine/Pelvis Back: no CVA tenderness Thoracic/Lumbar Spine: thoracic and lumbar spine normal to inspection Skin Lesions: no lesions Rashes: no rashes Neuro General: patient oriented x3 and Unable to assess gait (quadriplegic) Cranial nerves: Yes CN's II-XII intact bilaterally and Yes Equal, round and reactive pupils present Cognition (Neuro): normal cognition Gait exam (Neuro): Unable to assess gait (quadriplegic) Extrem Other: (+) muscle atrophy noted on extremities, especially over the lower extremities General: Yes no clubbing, cyanosis or edema Assessment and Plan Assessment & Plan (1) Annual physical exam: Code(s): Z00.00 - Encounter for general adult medical examination without abnormal findings Plan: Check labs - labs were previously ordered and these orders are still active in his file (2) Quadriplegia following spinal cord injury: Comment: incomplete C4-C5 injury (from wrestling) in 2001, with consequent quadriplegia Plan: (+) paraplegia of both lower extremities - has partial movement/function of both arms Patient currently moves around with a power wheelchair and he has a customized (motor) vehicle which he has been driving for a few years now Continue Baclofen 10 mg 2.5 tablets every 6 hours as needed for muscle spasms (3) Spinal cord injury: Plan: (+) incomplete cervical spinal cord injury (C4-C5) following a wresting injury in 2001, with consequent paraplegia and neurogenic bladder (4) Hypotonic neurogenic bladder: Code(s): N31.9 - Neuromuscular dysfunction of bladder, unspecified Plan: Continue Methenamine Hippurate tablets 1 gm 1 tablet twice a day (taken with vitamin C) for UTI prophylaxis, and Vesicare (Solifenacin) 10 mg QD for bladder spasms Has an indwelling catheter that he irrigates and manages on his own; goes to urology (Dr. Molina) once a month for catheter change (5) Celiac disease: Code(s): K90.0 - Celiac disease Plan: Tests done previously for celiac disease came back positive Reinforced gluten-free diet, which will help him avoid majority of symptoms related to celiac disease (6) Tinea cruris: Code(s): B35.6 - Tinea cruris Plan: Continue Nystatin cream apply to rash BID-TID PRN (7) Vitamin D deficiency: Code(s): E55.9 - Vitamin D deficiency, unspecified Plan: Continue Vitamin D3 2000 units QD (8) Constipation: Code(s): K59.00 - Constipation, unspecified Qualifiers: Constipation type: unspecified constipation type Qualified Code(s): K59.00 - Constipation, unspecified Plan: Multifactorial, including his quadriplegia and some degree of neurogenic bowel Reinforced increased oral fluids and dietary fiber Continue Miralax 17 gm QD and OTC Senna 8.6 mg PRN Plan To return in 1 year for his next annual physical examination; follow up PRN for acute issues if needed Orders: Orders Complete Blood Count Auto Diff 364 Days D64.9 - Anemia, unspecified, Z00.00 - Encounter for general adult medical examination without abnormal findings Comprehensive [place]. Panel Fast 364 Days E78.00 - Pure hypercholesterolemia, unspecified, Z00.00 - Encounter for general adult medical examination without abnormal findings Lipid Panel 364 Days E78.00 - Pure hypercholesterolemia, unspecified, Z00.00 - Encounter for general adult medical examination without abnormal findings TSH reflex Free T4 364 Days E78.00 - Pure hypercholesterolemia, unspecified, Z00.00 - Encounter for general adult medical examination without abnormal findings UA CC w/rflx Micro + Cult 364 Days R30.0 - Dysuria, Z00.00 - Encounter for general adult medical examination without abnormal findings Prostate Specific Antigen Scr 364 Days Z00.00 - Encounter for general adult medical examination without abnormal findings Vitamin D 25-OH Total 364 Days E55.9 - Vitamin D deficiency, unspecified, Z00.00 - Encounter for general adult medical examination without abnormal findings Coding Level of Care Code Est Pt Prev Care 40-64y(70184) Diagnoses Annual physical exam Z00.00 Quadriplegia following spinal cord injury Spinal cord injury Hypotonic neurogenic bladder N31.9 Celiac disease K90.0 Tinea cruris B35.6 Vitamin D deficiency E55.9 Constipation, unspecified constipation type K59.00 Constipation type: unspecified constipation type
== END 2023-12-16 17:29 | disposition home or self-care (01) ==
PROVIDERS: PCP Internal Medicine; Visit Provider Internal Medicine
DX: Z00.00 Encounter for general adult medical examination without abnormal findings (principal); G82.50 Quadriplegia, unspecified; N31.9 Neuromuscular dysfunction of bladder, unspecified; K90.0 Celiac disease; B35.6 Tinea cruris; E55.9 Vitamin D deficiency, unspecified; K59.00 Constipation, unspecified
CPT/HCPCS: 99396

== ENCOUNTER 2024-07-27 17:25 | Outpatient (AMB) | payer MEDICARE, OTHER, SELFPAY ==
[2024-07-27 17:27] VITALS: BP 110/78; PULSE 76; O2SAT 97
--- NOTE | 2024-07-27 17:27 | A.OFFPC_ITS ---
Vital Signs 07/27/24 17:27 Height 5 ft 8 in BP 110/78 Blood Pressure Location Lt brachial Position Sitting Pulse 76 Pulse Source Pulse Oximeter Pulse Oximetry (%) 97 Oxygen Delivery Method Room Air Intake Visit Reasons: Ear pressure possible infection Front Desk Person Required: No Accompanied by: Self / Same As Patient Allergies No Known Allergies Allergy (Verified 07/27/24 17:44) Medication List - Last Reconciled 07/27/24 by Alfonso Quiroz MD baclofen 25 mg (2.5 x 10 mg) PO Q6H 90 days cholecalciferol (vitamin D3) 50 mcg PO DAILY 90 days methenamine hippurate 1 g PO BID miscellaneous medical supply 1 ea miscellaneous DAILY 12 months nystatin 1 appl topical TID 10 days polyethylene glycol 3350 (Miralax) 17 grams PO DAILY sennosides (senna) 8.6 mg PO BEDTIME solifenacin 10 mg PO DAILY Tobacco use date assessed: 07/27/24 Dental Screening Dental Screen Date: 07/27/24 Did you have a dental visit in the last 12 months?: Yes Did you have a dental problem in the last 6 months where you did not have access to dental care?: No Was dental information given to patient?: Patient has dentist HPI Ear pressure possible infection HPI Details Patient comes in today for evaluation of a recurrent right ear discomfort / pressure that he states he's had for the past 2 days now Relates that he is just recovering from a bad bout of sinus infection and states that his symptoms have improved significantly with the Z-guerrero that I sent in for him a couple of weeks ago States that he took his last dose of the Abx last (4 days ago) Is concerned that he may be coming down with an ear infection and states that 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 and he was told that there seems to be some fluid in his inner ear and he should have his doctor look at it He denies any fever or sore throat; denies any ear drainage Denies any chest pains, no SOB but he still has some mild chest congestion and some lingering cough from the past couple of weeks No nausea/vomiting, no abdominal pain No change in bowel habits noted [facility] Medical History Constipation Vitamin D deficiency Celiac disease Skin rash Urinary bladder stone 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 Mother No problems noted. Other Mental health problem Social History Housing: House Alcohol intake: never Patient Tobacco Use Status: Never used Tobacco e-Cigarette/Vaping Use: Never Used Second Hand Smoke Exposure: No service: No Current occupational status: employed Cognitive needs: No Hearing needs: No Vision needs: No Questionnaire PHQ-9 Over the last 2 weeks, how often have you been bothered by any of the following problems? 1. Little interest or pleasure in doing things: not at all 2. Feeling down, depressed, or hopeless: not at all 3. Trouble falling or staying asleep, or sleeping too much: not at all 4. Feeling tired or having little energy: not at all 5. Poor appetite or overeating: not at all 6. Feeling bad about yourself - or that you are a failure or have let yourself or your family down: not at all 7. Trouble concentrating on things, such as reading the newspaper or watching television: not at all 8. Moving or speaking so slowly that other people could have noticed. Or the opposite - being so fidgety or restless that you have been moving around a lot more than usual: not at all 9. Thoughts that you would be better off or of hurting yourself in some way: not at all Total score: 0 Depression Screening Interpretation: Negative Depression Screening Done: Yes 01516 - PHQ-9 Billing: Yes Source: Developed by Drs. Rudi Will, Lilliam Hilario, Hair Keene and colleagues, with an educational aleshia from [email or web address]. Thrive Questionnaire Date Thrive assessed: 07/27/24 I am a: Patient What is your living situation today?: I have a steady place to live Within the past 12 months, did the food you bought not last and you didn't have the money to get more?: Never true Within the past 12 months, did you worry whether your food would run out before you got money to buy more?: Never true Do you have trouble paying for medicines?: No Do you have trouble getting transportation to medical appointments?: No Do you have trouble paying your heating and electricity bill?: No Do you have trouble taking care of your child, family member or friend?: No Do you have trouble with day-to-day activities such as bathing, preparing meals, shopping, managing finances, etc.?: No Are you currently unemployed and looking for a job?: No Are you interested in more education?: No Please select the resources that you would like help with: None Currently or been in a relationship where the following occur: No concerns reported THRIVE Score: 0 AUDIT C Alcohol Use Questionnaire (AUDIT-C) 1. How often do you have a drink containing alcohol?: Monthly or less 2. How many drinks containing alcohol do you have on a typical day when you are drinking?: 1 or 2 3. How often do you have six or more drinks on one occasion?: Never Total Score: 1 Score Reviewed/Action Taken: Yes MINE-7 AMB Questionnaire MINE-7 Date MINE - 7 assessed: 07/27/24 Feeling nervous, anxious, or on edge: 0 = Not at all Not being able to stop or control worryin = Not at all Worrying too much about different things: 0 = Not at all Trouble relaxin = Not at all Being so restless that it is hard to sit still: 0 = Not at all Becoming easily annoyed or irritable: 0 = Not at all Feeling afraid as if something awful might happen: 0 = Not at all Total MINE-7 score (0-4 normal; 5-9 mild; 10-14 moderate; 15-21 severe): 0 Source: Developed by Drs. Rudi Will, Lilliam Hilario, Hair Keene and colleagues, with an educational aleshia from [email or web address]. Review of Systems Const Denies chills, Denies fatigue, Denies fever(s) and Denies headache(s) ENT Denies dysphagia, Denies dizziness, Denies otalgia (but (+) on and off right ear pressure/discomfort), Denies headache(s), Reports nasal congestion (mild), Denies neck pain, Denies odynophagia and Denies sore throat Card Denies chest pain, Denies palpitations and Denies dyspnea Resp Reports chest congestion (mild), Reports cough (on and off), Denies dyspnea and Denies wheezing GI Denies abdominal pain, Denies constipation, Denies dysphagia, Denies heartburn, Denies diarrhea, Denies nausea, Denies odynophagia and Denies vomiting Details: (+) permanent urinary catheter - changed by urology every 3 weeks Denies hematuria and Denies dysuria Musc Denies back pain and Denies neck pain Skin/Breast Denies rash Neuro Denies dizziness and Denies headache(s) Endo Denies fatigue and Denies palpitations Aller/Immun Denies wheezing Physical exam (Primary Care) Vital Signs: Last Vital Signs Pulse 76 07/27/24 17:27 BP 110/78 07/27/24 17:27 Pulse Ox 97 07/27/24 17:27 Oxygen Delivery Method Room Air 07/27/24 17:27 Tobacco/Smoking Status: Tobacco use Status Tobacco use date assessed 07/27/24 07/27/24 17:31 Patient Tobacco Use Status Never used Tobacco 07/27/24 17:31 e-Cigarette/Vaping Use Never Used 07/27/24 17:31 PHQ-9: PHQ-9 Score PHQ-9: Total score 0 07/27/24 17:46 Depression Screening Interpretation: Negative Thrive Assessment: Date of Thrive Assessment Date Thrive assessed 07/27/24 07/27/24 17:31 Currently or been in a relationship where the following occur: No concerns reported Const General: no acute distress and alert Limitations: physical limitations (quadriplegic) and wheelchair HENMT Ears: TM normal on the left, EAC's normal and TM abnormal with fluid behind the TM (minimal) on the right; not with effusion Throat: Yes posterior oropharynx normal and Yes tonsils normal Neck Neck: Yes no lymphadenopathy and Yes supple Thyroid: Thyroid normal Resp Auscultation: no rales, rhonchi (occasional) throughout and no wheezes Cardio Rate: regular rate Rhythm: regular rhythm Heart sounds: no murmurs GI Palpation (GI): Soft to palpation and nontender Auscultation: normal bowel sounds Other: (+) permanent urinary catheter General: Yes no CVA tenderness Back/Spine/Pelvis Back: no CVA tenderness Skin Rashes: no rashes Neuro General: Unable to assess gait (quadriplegic) Gait exam (Neuro): Unable to assess gait (quadriplegic) Extrem Other: (+) muscle atrophy noted on extremities, especially over the lower extremities General: Yes no clubbing, cyanosis or edema Assessment and Plan Assessment & Plan (1) Right otitis media: Code(s): H66.91 - Otitis media, unspecified, right ear Qualifiers: Otitis media type: unspecified Qualified Code(s): H66.91 - Otitis media, unspecified, right ear (2) Upper respiratory tract infection: Code(s): J06.9 - Acute upper respiratory infection, unspecified Qualifiers: URI type: unspecified URI Qualified Code(s): J06.9 - Acute upper respiratory infection, unspecified Plan Patient is advised that his current right ear symptoms may be a beginning right ear infection but may also be an after-effect of his recent bout with respiratory tract infection/sinus infection As he reports (+) significant improvement of his symptoms with 5 days of Azithromycin recently, will go ahead and start him on another round of Azithromycin x 5 days - advised that this should help clear up his ear symptoms as well as his remaining/lingering respiratory symptoms Have advised him that he can also take some OTC decongestants or cough/cold meds PRN for symptomatic relief To return as scheduled in November 2024 for his annual physical examination Medications: Refilled azithromycin take 500 mg today (day 1), then 250 mg for 4 days (days 2-5) PO 6 tabs 0RF Coding Level of Care Code Est Pt Level 3 (85009) Diagnoses Right otitis media, unspecified otitis media type H66.91 Otitis media type: unspecified Upper respiratory tract infection, unspecified type J06.9 URI type: unspecified URI
== END 2024-07-27 17:49 | disposition home or self-care (01) ==
PROVIDERS: PCP Internal Medicine; Visit Provider Internal Medicine
DX: H66.91 Otitis media, unspecified, right ear (principal); J06.9 Acute upper respiratory infection, unspecified

== ENCOUNTER → 2024-07-27 17:25 | Outpatient (BNVA) | payer MEDICARE, OTHER, SELFPAY | PROVIDERS: PCP Internal Medicine; Visit Provider Internal Medicine | DX: H66.91 Otitis media, unspecified, right ear (principal); J06.9 Acute upper respiratory infection, unspecified | CPT/HCPCS: 99212 ==

== ENCOUNTER 2024-12-15 09:16 | Outpatient (REF) | payer MEDICARE, OTHER, SELFPAY ==
[2024-12-15 09:51] LABS: MANUAL DIFF FLAG NO
--- OUTSIDE RECORDS SUMMARY | 2024-12-15 09:56 | XMS_ITS | Patient Health Record ---
Author Organization [facility] Address [address] [place] [address] Care Team Providers Care [employer] Special Agent Name Role Phone Richie HARGROVE, [place] Primary Care Provider Rupa Callahan Unavailable [phone] Allergies Allergen (clinical drug ingredient) Drug/Non Drug Allergy documented on EMR Reaction Allergy Type Onset Date Status sulfamethoxazole / trimethoprim Bactrim Unknown Drug Allergy Active Reason For Referral No Information Medications Medication SIG (Take, Route, Fr equency, Duration) Notes Start Date End Date Status Baclofen Active VESIcare 10 MG 1 tablet Orally Once a day for 30 day(s) Active Senna Active Magnesium Citrate Ac tive Social History Tobacco Use: Social History Observation Description Date Details (start date - stop date) Never Smoker NA - NA Tobacco Use/Smoking Question Answer Notes Are you a: nonsmoker Additional Findings: Tobacco Non-User Current no n-smoker Alcohol Screen Question Answer Notes Did you have a drink containing alcohol in the p ast year? Yes Points 0 Interpretation Negative Tobacco use other than smoking: Question Answer Notes Are you an other tobacco user? No Problems Problem Type SNOMED Code ICD Code Onset Dates Problem Status W/U Status Risk Notes Problem [id number] Atherosclerosi s of artery of both lower extremities (I70.203) Active confirmed Vital Signs Height 5ft8in in 05/13/2024 Weight 130 lbs 05/13/2024 BMI 19.76 kg/m2 05/13/2024 Encounters Encounter Location Date Provider Diagnosis [facility] [address] [place] [address] 02/12/2024 Rupa Denton Atherosclerosis of artery of both lower extremities I70.203 ; Contusion of right foot or heel S90.31XA and Contusion of left foot or heel S90.32XA [facility] [address] [place] [address] 05/13/2024 Rupa Corrie Atherosclerosis of artery of both lower extremities I70.[address] [address] 01/15/2024 Rupaplacido Denton [facility] [address] 08/17/2024 Rupa Denton Assessments Encounter Date Diagnosis (ICD Code) Assessment Notes Treatment Notes Treatment Clinical Notes Section Notes 02/12/2024 Atherosclerosis of artery of both lower extremities (ICD-10 - I70.203) 02/12/2024 Contusion of right foot or heel (ICD-10 - S90.31XA) 05/13/2024 Atherosclerosis of artery of both lower extremities (ICD-10 - I70.203) 02/12/2024 Contusion of left foot or heel (ICD-10 - S90.32XA) Plan Of Treatment Next Appt Details Provider Name:Rupa Johnston Rudy johnston, 12/30/2024 02:00:00 PM, [address] [place] [address], [id number], Insurance Providers Payer Name Payer Address Payer Phone Subscriber Number Group Number Insured Name Patient Relationship to Insured Coverage Start Date Coverage End Date Medicare [employer] [address] [place] [address] [id number] Barrera Ward Self - [facility] [address] [place] [phone] [id number] Barrera Ward Self - patient is the insured Medical (General) History Medical History History ICD Code Paralysis Chicken pox Celiac disease Spinal Cord Injury C4/5 Surgical History Surgery Date(Month/Year) neck fusion 12/14/2001 kidney stones 09/17/2022
--- OUTSIDE RECORDS SUMMARY | 2024-12-15 09:57 | XMS_ITS ---
Author Organization [facility] Address [address] [place] [address] Care Team Providers Care Unhairing Machine Operator Name Role Phone Richie HARGROVE [place] Primary Care Provider Rupa Callahan Unavailable [phone] Allergies Allergen (clinical drug ingredient) Drug/Non Drug Allergy documented on EMR Reaction Allergy Type Onset Date Status sulfamethoxazole / trimethoprim Bactrim Unknown Drug Allergy Active REASON FOR VISIT At Risk Footcare, Painful Nail(s) aggrevated by shoes and causing difficulty standing/walking. Medications Medication SIG (Take, Route, Fr equency, Duration) Notes Start Date End Date Status Baclofen Active VESIcare 10 MG 1 tablet Orally Once a day for 30 day(s) Active Magnesium Citrate Ac tive Senna Active Social History Tobacco Use: Social History Observation [...] Are you an other tobacco user? No Vital Signs Height 5ft8in in 05/13/2024 Weight 130 lbs 05/13/2024 BMI 19.76 kg/m2 05/13/2024 Encounters Encounter Location Date Provider Diagnosis [facility] [address] [place] [address] 05/13/2024 Rupa Denton Atherosclerosis of artery of both lower extremities I70.203 Assessments Encounter Date Diagnosis (ICD Code) Assessment Notes Treatment Notes Treatment Clinical Notes Section Notes 05/13/2024 Atherosclerosis of artery of both lower extremities (ICD-10 - I70.203) Plan Of Treatment Next Appt Details Follow Up: 3 Months, Reason: Provider Name:Rupa johnston, 12/30/2024 02:00:00 PM, [address] [facility], [place], [address], Procedure Notes * Category Sub-Category Detail Notes Nail Reduction Nail Reduction Trimming of dyst rophic nails performed to reduce/remove overall nail length and girth, by manual and electrical means with use of a nail nipper and/or dremel, to more viable healthy nail plate or bed tissue 6-10 (D4809-C3) Progress Notes * Barrera WARD ADOB:1980 (44 yo M)Acc No.[id number]:05/13/2024 Progress Note Patient:?Barrera Ward Provider:?Rupa Denton DPM :1980???Age:44 Y???Sex:Male Terry e:05/13/2024 Address:[address] [place], [place] [id number] Pcp:Alfonso Quiroz MD Subjective: * Chief Complaints: * ???At Risk FootcarePainful N ail(s) aggrevated by shoes and causing difficulty standing/walking. * HPI: ???At Risk footcare:?Pt States Last PCP Visit:?Date?12/05/2022 * ROS:?General/Constitutional:?Nausea?denies, denies, denies, denies, denies, denies.?Vomiting?denies, denies, denies, denies, denies, denies.?Hunger Thirst?denies, denies, denies, denies, denies, denies.?Loss appetite?denies, denies, denies, denies, denies, denies.?Chills?denies, denies, denies, denies, denies, denies.?Fatigue?denies, denies, denies, denies, denies, denies.?Fever?denies, denies, denies, denies, denies, denies.?Night Sweats?denies, denies, denies, denies, denies, denies.?Unexplained weight loss?denies, denies, denies, denies, denies, denies.?Unexplained weight gain?denies, denies, denies, denies, denies, denies.?HEENTM:?Dentures?denies, denies, denies, denies, denies, denies.?Dizziness?denies, denies, denies, denies, denies, denies.?Glasses/contacts?admits, admits, admits, admits, admits, admits.?Retinopathy?denies, denies, denies, denies, denies, denies.?Blurred/double vision?denies, denies, denies, denies, denies, denies.?TMJ?denies, denies, denies, denies, denies, denies.?Discharge/drainage?denies, denies, denies, denies, denies, denies.?Implants?denies, denies, denies, denies, denies, denies.?Sore throat?denies, denies, denies, denies, denies, denies.?Dental implants?denies, denies, denies, denies, denies, denies.?Hard of hearing ?denies, denies, denies, denies, denies, denies.?Difficulty chewing/swallowing/speaking?denies, denies, denies, denies, denies, denies.?Nose bleeds?denies, denies, denies, denies, denies, denies.?Sore mouth?denies, denies, denies, denies, denies, denies.?Respiratory:?On Oxygen?denies, denies, denies, denies, denies, denies.?Pneumonia/pleurisy?denies, denies, denies, denies, denies, denies.?Bronchitis?denies, denies, denies, denies, denies, denies.?Emphysema?denies, denies, denies, denies, denies, denies.?Coughing?denies, denies, denies, denies, denies, denies.?Cough blood?denies, denies, denies, denies, denies, denies.?Shortness of breath?denies, denies, denies, denies, denies, denies.?Wheezing?denies, denies, denies, denies, denies, denies.?Cardiovascular:?Pacemaker?denies, denies, denies, denies, denies, denies.?MVP?denies, denies, denies, denies, denies, denies.?WPW?denies, denies, denies, denies, denies, denies.?CHF?denies, denies, denies, denies, denies, denies.?Heart attack?denies, denies, denies, denies, denies, denies.?Septal defect?denies, denies, denies, denies, denies, denies.?Rapid beat?denies, denies, denies, denies, denies, denies. Chest pain ?denies, denies, denies, denies, denies, denies.?Atrial Fib.?denies, denies, denies, denies, denies, denies.?Murmur/Palpitations?denies, denies, denies, denies, denies, denies.?Gastrointestinal:?Hemorrhoids?denies, denies, denies, denies, denies, denies.?Stomach/Abdominal pain?denies, denies, denies, denies, denies, denies.?Dark blood stool?denies, denies, denies, denies, denies, denies.?Irritable bowel ?denies, denies, denies, denies, denies, denies.?Constipation?admits, admits, admits, denies, admits, admits.?Diarrhea?denies, denies, denies, denies, denies, denies.?Hematology:?Swelling?denies, denies, admits, admits, denies, denies.?Clots?denies, denies, denies, denies, denies, denies.?Varicose Veins?denies, denies, denies, denies, denies, denies.?Bruising?denies, denies, denies, denies, denies, denies.?Bleeding problem?denies, denies, denies, denies, denies, denies.?Genitourinary:?Blood urine?denies, denies, denies, denies, denies, denies.?Frequent/Painfu/urination/bladder control?denies, denies, denies, denies, denies, denies.?Kidney stones?denies, denies, denies, denies, denies, denies.?Infection (UTI)?admits, admits, admits, denies, admits, admits.?Nephropathy?denies, denies, denies, denies, denies, denies.?sex trans dis (STD)?denies, denies, denies, denies, denies, denies.?Prostate?denies, denies, denies, denies, denies, denies.?Musculoskeletal:?Hammertoes?denies, denies, denies, denies, denies, denies.?Bunions?denies, denies, denies, denies, denies, denies.?Back Pain?denies, denies, denies, denies, denies, denies.?Muscle Cramps/ Resting?denies, denies, denies, denies, denies, denies.?Muscle cramps / walking?denies, denies, denies, denies, denies, denies.?Generalized aches and pains?denies, denies, denies, denies, denies, denies.?Weakness?denies, denies, denies, denies, denies, denies.?Integ.:?Larson?denies, denies, denies, denies, denies, denies.?Scars?denies, denies, denies, denies, denies, denies.?Corns/calluses?denies, denies, denies, denies, denies, denies.?Ingrown nails?denies, denies, denies, denies, denies, denies.?Painful nails?denies, denies, denies, denies, denies, denies.?Open Sores?denies, denies, denies, denies, denies, denies.?Rashes?denies, denies, denies, denies, denies, denies.?Neurologic:?Difficulty sleeping?denies, denies, denies, denies, denies, denies.?Brain disorder?denies, denies, denies, denies, denies, denies.?Numbness?denies, denies, denies, denies, denies, denies.?Balance trouble?denies, denies, denies, denies, denies, denies.?Confusion?denies, denies, denies, denies, denies, denies.?Fainting/blackouts?denies, denies, denies, denies, denies, denies.?Tingling?denies, denies, admits, admits, denies, denies.?Tremors?denies, denies, denies, denies, denies, denies.? * Medical History:? * Surgical History:?neck fusio n 12/14/2001kidney stones 09/17/2022 * Hospitalization/Major Diagno stic Procedure:?Denies Past Hospitalization * Family History:?Mother: cristal bull, diagnosed with Family history of arthritis.?Father: alive, diagnosed with Unspecified heart disease.?Paternal Grand Father: diagnosed with Diabetic - NIDDM.?Maternal Grand Mother: diagnosed with Other malignant neoplasm of unspecified site.? * Social History:?Tobacco Use:?Tobacco Use/Smoking?Are you a:?nonsmoker ?Additional Findings: Tobacco Non-User?Current non-smoker ?Tobacco use other than smoking?Are you an other tobacco user??No ???Drugs/Alcohol:?Drugs?Have you used drugs other than those for medical reasons in the past 12 months??No ?Alcohol Screen?Did you have a drink containing alcohol in the past year??Yes ?Points?0 ?Interpretation?Negative ???Miscellaneous:?Caffeine: yes, frequency:, 1-2 cups per day. ?Children: yes. ?Exercise: yes. ?Marital status: . ?Occupation: Teacher. * Medications:?TakingSenna Mag nesium Citrate VESIcare 10 MG Tablet 1 tablet Orally Once a dayBaclofen Medication List reviewed and reconciled with the patientTaking Senna Taking Magnesium Citrate Taking VESIcare 10 MG Tablet 1 tablet Orally Once a dayTaking Baclofen Medication List reviewed and reconciled with the patient * Allergies:?Bactrimyes[Allerg ies Verified] Objective: * Vitals:?Ht: 5ft8in, Wt:130, BMI:19.76, Shoe size: 9.5, Ht-cm: 172.72 cm, Wt-k.97 kg. * Examination: ???Vascular: ?DP PULSES:? 0/4, B/L.?PT PULSES:? 0/4, B/L.?CAPILLARY FILL TIME:? delayed, all digits, B/L.?SKIN TEMPERTURE GRADIENT OF THE LOWER EXTERMITIES:? decreased, cool to cool, proximal to distal, B/L.?HAIR GROWTH/TEXTURE/ELASTICITY/TURGOR:? decreased, B/L.?PIGMENTATION:? pale, B/L.?EDEMA:? 1/4.?Nails: ?NAILS are:? Elongated, overgrown, dystrophic 1-5 B/L.?Dermatologic: ?SKIN FINDINGS:?Skin exam reveals normal color, texture, elasticity, and turgor. There are no masses, nor excrescences. The interspaces are clear, B/L.?General Examination: ?GENERAL APPEARANCE:?Reveals a pleasant, alert, well nourished, well developed, well hydrated individual, who demonstrates proper attention to hygene/body habitus, and is in no acute distress.?ORIENTED:?person, place, and time.?Neurological: ?SENSORY:? Neurological exam demonstrates reduced light touch sensation reduced sharp/dull pin prick discrimination B/L.?Orthopedic: ?MUSCLE STRENGTH:? Spasms B/L feet Generalized decrease in strength B/L.? Assessment: * Assessment: 1.?Atherosclerosis of artery of both lower extremities - I70.203 (Primary)? Plan: * Treatment: * Procedures:?Nail Reduction:?Nail Reduction?Trimming of dystrophic nails performed to reduce/remove overall nail length and girth, by manual and electrical means with use of a nail nipper and/or dremel, to more viable healthy nail plate or bed tissue 6-10 (G0127- Q8).? * Procedure Codes:?G0127 LUDWIN ING DYSTROPHIC NAILS ANY #, Modifiers: XS , Q8 * Follow Up:?3 Months * Images: * Sign off status: Completed true * Provider:?Rupa Denton DPM Date:? Generated for Belemi annamaria/Marine/eTransmitting on:?12/15/2024 09:56 AM EST History and Physical Notes * HPI (History of Present Illness) Category Sub-Category Detail Notes Category Not es At Risk footcare Pt States Last PCP Visit: Date: 3 Examination Category Sub-Category Detail Notes Category Not es Neurological SENSORY: Neurological exa m demonstrates reduced light touch sensation reduced sharp/dull pin prick discrimination B/L Dermatologic SKIN FINDINGS: Skin exam reveal s normal color, texture, elasticity, and turgor. There are no masses, nor excrescences. The interspaces are clear, B/L Orthopedic MUSCLE STRENGTH: Spasms B/L feet Generalized decrease in strength B/L General Examination GENERAL APPEARANCE: Reveals a pleasant, alert, well nourished, well developed, well hydrated individual, who demonstrates proper attention to hygene/body habitus, and is in no acute distress ORIENTED: person, place, and t [facility] DP PULSES (B): 0/4, B/L PT PULSES (B): 0/4, B/L CAPILLARY FILL TIME: delayed, all digits , B/L TEMPERTURE GRADIENT (C): decreased, cool to cool, proximal to distal, B/L TROPHIC CONDITION-TEXTURE/ELASTICITY/TURGOR/HAIR GROWTH (B): decreased, B/L EDEMA (C): 1/4 PIGMENTATION: pale, B/L Nails NAILS are: Elongated, overgrown, dystro phic 1-5 B/L
--- OUTSIDE RECORDS SUMMARY | 2024-12-15 09:57 | XMS_ITS ---
Author Organization [facility] Address [address] [place] [address] Care Team Providers Care Desktop Support Associate Name Role Phone Richie HARGROVE [place] Primary Care Provider Unava ilRupa Castillo [phone] REASON FOR VISIT cx 08/18 Encounters Encounter Location Date Provider Diagnosis [address] [address] 08/17/2024 Rupa Denton Plan Of Treatment Next Appt Details Provider Name:Rupa johnston, 12/30/2024 02:00:00 PM, [address] [place], [address], Progress Notes * Barrera WARD ADOB:1980 (44 yo M)Acc No.[id number]:08/17/2024 Patient:?Barrera Ward :1980???Age:44 Y???Sex:Male Address:[address] [place] [address] * true * Date:? Generated for Belemi annamaria/Marine/eTransmitting on:?12/15/2024 09:56 AM EST
--- OUTSIDE RECORDS SUMMARY | 2024-12-15 09:57 | XMS_ITS ---
Author Organization [facility] Address [address] [place] [address] Care Team Providers Care Sporting Goods Sales Associate Name Role Phone Alfonso Quiroz MD Primary Care Provider UnaRupa Jamil Unavailable [phone] Allergies Allergen (clinical drug ingredient) Drug/Non Drug Allergy documented on EMR Reaction Allergy Type Onset Date Status sulfamethoxazole / trimethoprim Bactrim Unknown Drug Allergy Active Medications Medication SIG (Take, Route, Fr equency, Duration) Notes Start Date End Date Status Baclofen Active VESIcare 10 MG 1 tablet Orally Once a day for 30 day(s) Active Senna Active Magnesium Citrate Ac tive Encounters Encounter Location Date Provider Diagnosis [address] [address] 08/18/2024 Rupa Denton Plan Of Treatment Next Appt Details Provider Name:Rupa johnston, 12/30/2024 02:00:00 PM, [address] [place] [address], [address], Progress Notes * Barrera WARD ADOB:1980 (44 yo M)Acc No.[id number]:08/18/2024 Progress Note Patient:?Barrera WARD Provider:?Rupa Denton DPM :1980???Age:44 Y???Sex:Male Terry e:08/18/2024 Address:[address] [place] [address] [id number] Pcp:Alfonso Quiroz MD Subjective: * Chief Complaints: * ??? 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 * Medications:?Taking Senna , Taking Magnesium Citrate , Taking VESIcare 10 MG Tablet 1 tablet Orally Once a day , Taking Baclofen * Allergies:?Bactrim. Objective: * Vitals:? Assessment: Plan: * Treatment: * Images: * The named appointment provid er may or may not be the originator of this progress note, and it is not deemed complete until electronically signed by the appointment provider. Sign off status: Pending * Provider:?Rupa Denton DPM Date:? Generated for Luis yin/Marine/Elen on:?12/15/2024 09:56 AM EST
[2024-12-15 09:59] LABS: Basophils Percent Auto 0.5 % (0-2); Eosinophils Absolute Auto 0.2 X10*3/uL (0.0-0.4); Eosinophils Percent Auto 5.4 % (0-4); Hematocrit 43.2 % (42.0-52.0); Hemoglobin 14.9 g/dl (14.0-18.0); Imm Gran Abs Auto 0.01 X10*3/uL (0.00-0.03); Imm Gran Pct Auto 0.3 % (0.0-0.4); Lymphocytes Absolute Auto 1.5 X10*3/uL (1.2-4.9); Lymphocytes Percent Auto 39.1 % (20-40); Mean Corpuscular HGB Conc 34.5 g/dl (31.0-36.0); Mean Corpuscular Hemoglobin 29.9 pg (27.0-33.0); Mean Corpuscular Volume 86.6 fL (80.0-98.0); Mean Platelet Volume 10.4 fL (9.4-12.4); Monocytes Absolute Auto 0.4 X10*3/uL (0.1-1.2); Neutrophils Absolute Auto 1.8 x10*3/uL (2.0-8.3); Neutrophils Percent Auto 44.7 % (45-73); Platelet Count 172 X10*3/uL (160-400); Red Blood Count 4.99 X10*6/uL (4.60-5.80); Red Cell Distribution Width 12.6 % (11.0-16.0); White Blood Count 3.9 X10*3/uL (4.8-10.8)
[2024-12-15 10:53] LABS: Alanine Aminotransferase 26 U/L (0-40); Alkaline Phosphatase 57 U/L (39-117); Anion Gap 10 (12-20); Aspartate Amino Transferase 25 U/L (5-37); Bilirubin Total 0.2 mg/dL (0.0-1.0); Blood Urea Nitrogen 14 mg/dL (9-16); Calcium 9.1 mg/dL (8.4-10.2); Carbon Dioxide 24 mmol/L (22-29); Chloride 112 mmol/L (96-108); Cholesterol 124 mg/dL (<200); Estimated Glomerular Filt Rate > 60; Glucose Fasting 105 mg/dL (60-99); HDL Cholesterol 32 mg/dL (>40); LDL Cholesterol Calculated 82 mg/dL (<100); Potassium 4.3 mmol/L (3.3-5.1); Sodium 142 mmol/L (135-145); Total Protein 7.5 g/dL (6.5-8.0); Triglycerides 51 mg/dL (<150)
[2024-12-15 10:58] LABS: TSH reflex Free T4 1.33 uIU/mL (0.32-4.0); Vitamin D 25-OH Total 13.3 ng/mL (>30)
[2024-12-15 11:05] LABS: Prostate Specific Antigen Scr 1.69 ng/mL (<0.05-4.0)
== END 2024-12-15 09:17 | disposition home or self-care (01) ==
LOC: HO.HMGCLDS 09:16
PROVIDERS: PCP Internal Medicine; Visit Provider Internal Medicine
DX: Z00.00 Encounter for general adult medical examination without abnormal findings (principal); E78.00 Pure hypercholesterolemia, unspecified; E55.9 Vitamin D deficiency, unspecified; D64.9 Anemia, unspecified; Z12.5 Encounter for screening for malignant neoplasm of prostate
CPT/HCPCS: 36415; 80053; 80061; 82306; 84153; 84443; 85025

== ENCOUNTER 2024-12-18 14:56 | Outpatient (AMB) | payer MEDICARE, OTHER, SELFPAY ==
[2024-12-18 15:05] VITALS: BP 110/76; PULSE 79; O2SAT 97
--- NOTE | 2024-12-18 15:05 | A.OFFPC_ITS ---
Vital Signs 12/18/24 15:05 Height 5 ft 8 in BMI Reason not done Patient refused/unable BP 110/76 Blood Pressure Location Lt brachial Position Sitting Pulse 79 Pulse Source Pulse Oximeter Pulse Oximetry (%) 97 Oxygen Delivery Method Room Air Intake Visit Reasons: pe It Disaster Recovery Manager Required: No Accompanied by: Self / Same As Patient Allergies No Known Allergies Allergy (Verified 12/18/24 15:26) Medication List - Last Reconciled 12/18/24 by Alfonso Quiroz MD baclofen 25 mg (2.5 x 10 mg) PO Q6H 90 days cholecalciferol (vitamin D3) 50 mcg PO DAILY 90 days methenamine hippurate 1 g PO BID miscellaneous medical supply 1 ea miscellaneous DAILY 12 months nystatin 1 appl topical TID 10 days polyethylene glycol 3350 (Miralax) 17 grams PO DAILY sennosides (senna) 8.6 mg PO BEDTIME solifenacin 10 mg PO DAILY Tobacco use date assessed: 12/18/24 Dental Screening Dental Screen Date: 12/18/24 Did you have a dental visit in the last 12 months?: Yes Did you have a dental problem in the last 6 months where you did not have access to dental care?: No Was dental information given to patient?: Patient has dentist HPI pe HPI Details Patient comes in today for his annual physical examination States that he feels okay He denies any headaches or dizziness Denies any chest pains, no shortness of breath No nausea /vomiting, no abdominal pain No change in bowel habits noted - he continues to take MiraLax daily and has been able to keep his bowel regimen controlled; takes his stool softener (Senna) occasionally only when needed He has a urinary catheter in place for his neurogenic bladder related to his spinal cord injury and this is changed regularly by urology every 3 to 4 weeks but states that he has been having intermittent issues with catheter blockage lately that required irrigation and changing of his Finney catheter He underwent cystoscopy under anesthesia with cystolitholapaxy and bladder irrigation back on 04/23/2024 Patient moves around with a wheelchair because of his quadriplegia that is the result of an 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 while wrestling back in 2001 He had his follow-up labs done a few days ago - to discuss his results [facility] Medical History (Updated 12/19/24 @ 19:22 by Alfonso Quiroz MD) Constipation Vitamin D deficiency Celiac disease Skin rash Urinary bladder stone 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 Mother No problems noted. Other Mental health problem Social History Housing: House Alcohol intake: never Patient Tobacco Use Status: Never used Tobacco e-Cigarette/Vaping Use: Never Used Second Hand Smoke Exposure: No service: No Current occupational status: employed Cognitive needs: No Hearing needs: No Vision needs: No Questionnaire PHQ-9 Over the last 2 weeks, how often have you been bothered by any of the following problems? 1. Little interest or pleasure in doing things: not at all 2. Feeling down, depressed, or hopeless: not at all 3. Trouble falling or staying asleep, or sleeping too much: not at all 4. Feeling tired or having little energy: not at all 5. Poor appetite or overeating: not at all 6. Feeling bad about yourself - or that you are a failure or have let yourself or your family down: not at all 7. Trouble concentrating on things, such as reading the newspaper or watching television: not at all 8. Moving or speaking so slowly that other people could have noticed. Or the opposite - being so fidgety or restless that you have been moving around a lot more than usual: not at all 9. Thoughts that you would be better off or of hurting yourself in some way: not at all Total score: 0 Depression Screening Interpretation: Negative Depression Screening Done: Yes 49214 - PHQ-9 Billing: Yes Source: Developed by Drs. Rudi Will, Lilliam Hilario, Hair Keene and colleagues, with an educational aleshia from [employer]. Thrive Questionnaire Date Thrive assessed: 12/18/24 I am a: Patient What is your living situation today?: I have a steady place to live Within the past 12 months, did the food you bought not last and you didn't have the money to get more?: Never true Within the past 12 months, did you worry whether your food would run out before you got money to buy more?: Never true Do you have trouble paying for medicines?: No Do you have trouble getting transportation to medical appointments?: No Do you have trouble paying your heating and electricity bill?: No Do you have trouble taking care of your child, family member or friend?: No Do you have trouble with day-to-day activities such as bathing, preparing meals, shopping, managing finances, etc.?: No Are you currently unemployed and looking for a job?: No Are you interested in more education?: No Please select the resources that you would like help with: None Currently or been in a relationship where the following occur: No concerns reported THRIVE Score: 0 AUDIT C Alcohol Use Questionnaire (AUDIT-C) 1. How often do you have a drink containing alcohol?: Monthly or less 2. How many drinks containing alcohol do you have on a typical day when you are drinking?: 1 or 2 3. How often do you have six or more drinks on one occasion?: Never Total Score: 1 Score Reviewed/Action Taken: Yes MINE-7 AMB Questionnaire MINE-7 Date MINE - 7 assessed: 12/18/24 Feeling nervous, anxious, or on edge: 0 = Not at all Not being able to stop or control worryin = Not at all Worrying too much about different things: 0 = Not at all Trouble relaxin = Not at all Being so restless that it is hard to sit still: 0 = Not at all Becoming easily annoyed or irritable: 0 = Not at all Feeling afraid as if something awful might happen: 0 = Not at all Total MINE-7 score (0-4 normal; 5-9 mild; 10-14 moderate; 15-21 severe): 0 Source: Developed by Drs. Rudi Will, Lilliam Hilario, Hair Keene and colleagues, with an educational aleshia from [employer]. Review of Systems Const Denies chills, Denies fatigue, Denies fever(s), Denies headache(s) and Denies malaise Eyes Denies blurry vision, Denies change in vision, Denies irritation and Denies itchy eyes ENT Denies dysphagia, Denies dizziness, Denies otalgia, Denies headache(s), Denies nasal congestion, Denies neck pain, Denies odynophagia and Denies sore throat Card Denies chest pain, Denies rapid heart rate, Denies irregular heart rhythm, Denies palpitations and Denies dyspnea Resp Denies chest congestion, Denies cough, Denies dyspnea and Denies wheezing GI Denies abdominal pain, Denies bloating, Denies hematochezia, Denies change in bowel habits, Reports constipation (at times; current Rx help keep this manageable), Denies dysphagia, Denies heartburn, Denies diarrhea, Denies nausea, Denies odynophagia and Denies vomiting Details: (+) permanent urinary catheter - changed by urology every 3 weeks Denies hematuria, Denies dysuria, Denies testicular mass and Denies testicular pain Musc Denies back pain, Denies arthralgias, Denies joint swelling and Denies neck pain Skin/Breast Denies change in pigmentation, Denies lesions, Denies rash and Denies unusual b ruising Neuro Details: quadriplegic - is wheelchair-bound Denies dizziness, Denies headache(s) and Denies paresthesias Endo Denies fatigue and Denies palpitations Aller/Immun Denies itchy eyes and Denies wheezing Physical exam (Primary Care) Vital Signs: Last Vital Signs Pulse 79 12/18/24 15:05 BP 110/76 12/18/24 15:05 Pulse Ox 97 12/18/24 15:05 Oxygen Delivery Method Room Air 12/18/24 15:05 Tobacco/Smoking Status: Tobacco use Status Tobacco use date assessed 12/18/24 12/18/24 15:09 Patient Tobacco Use Status Never used Tobacco 12/18/24 15:09 e-Cigarette/Vaping Use Never Used 12/18/24 15:09 PHQ-9: PHQ-9 Score PHQ-9: Total score 0 12/18/24 15:45 Depression Screening Interpretation: Negative Thrive Assessment: Date of Thrive Assessment Date Thrive assessed 12/18/24 12/18/24 15:09 Currently or been in a relationship where the following occur: No concerns reported Const General: no acute distress, alert and awake Orientation/consciousness: patient oriented x3 Limitations: physical limitations (quadriplegic) and wheelchair HENMT Head: Yes normocephalic and Yes atraumatic Ears: external ears normal, TM's normal bilaterally and EAC's normal General nose exam: No nasal discharge present Face and sinus: Yes normal facial exam and Yes sinuses nontender Teeth and gingiva: dentition normal Throat: Yes posterior oropharynx normal and Yes tonsils normal (no TP congestion) Eyes Eyelids: Yes eyelids normal Conjunctivae: conjunctivae normal Pupils: Equal, round and reactive pupils present EOM: EOMs intact bilaterally Neck Neck: Yes supple and No lymphadenopathy Thyroid: Thyroid normal Resp Auscultation: clear to auscultation bilaterally, no rales and no wheezes Cardio Rate: regular rate Rhythm: regular rhythm Heart sounds: no murmurs GI Palpation (GI): Soft to palpation, nontender and No hepatosplenomegaly present Auscultation: normal bowel sounds Other: (+) permanent urinary catheter General: Yes no CVA tenderness Back/Spine/Pelvis Back: no CVA tenderness Thoracic/Lumbar Spine: thoracic and lumbar spine normal to inspection Skin Lesions: no lesions Rashes: no rashes Neuro General: patient oriented x3 and Unable to assess gait (quadriplegic) Cranial nerves: Yes CN's II-XII intact bilaterally and Yes Equal, round and reactive pupils present Cognition (Neuro): normal cognition Gait exam (Neuro): Unable to assess gait (quadriplegic) Extrem Other: (+) muscle atrophy noted on extremities, especially over the lower extremities General: Yes no clubbing, cyanosis or edema Results Reviewed Results Reviewed: Laboratory Tests 12/15/24 09:20 WBC 3.9 L Hgb 14.9 Hct 43.2 Plt Count 172 Sodium 142 Potassium 4.3 Creatinine 0.67 Estimated GFR > 60 Fasting Glucose 105 H Calcium 9.1 AST 25 ALT 26 Triglycerides 51 Cholesterol 124 LDL Cholesterol, Calc 82 HDL Cholesterol 32 L PSA Screen 1.69 25-OH Vitamin D Total 13.3 L TSH 1.33 Coding Level of Care Code Est Pt Prev Care 40-64y(91904) Diagnoses Annual physical exam Z00.00 Quadriplegia following spinal cord injury Spinal cord injury Hypotonic neurogenic bladder N31.9 Celiac disease K90.0 Vitamin D deficiency E55.9 Constipation, unspecified constipation type K59.00 Constipation type: unspecified constipation type Additional Codes PHQ-9 - 42988 - PHQ-9 Billing: Yes ([id number]) Assessment & Plan Assessment & Plan (1) Annual physical exam: Code(s): Z00.00 - Encounter for general adult medical examination without abnormal findings Category: Medical Plan: Results of his labs done a few days ago reviewed and discussed with patient He currently has no routine cancer screenings due at his age and he has no known increased personal or family risks cancer (2) Quadriplegia following spinal cord injury: Comment: incomplete C4-C5 injury (from wrestling) in 2001, with consequent quadriplegia Category: Medical Plan: (+) paraplegia of both lower extremities - he has partial movement/function of both arms Patient moves around with a power wheelchair and he has a customized (motor) vehicle which he has been driving for a few years Continue Baclofen 10 mg 2.5 tablets every 6 hours as needed for muscle spasms (3) Spinal cord injury: Category: Medical Plan: (+) incomplete cervical spinal cord injury (C4-C5) following a wresting injury in 2001, with consequent paraplegia and neurogenic bladder (4) Hypotonic neurogenic bladder: Code(s): N31.9 - Neuromuscular dysfunction of bladder, unspecified Category: Medical Plan: Continue Methenamine Hippurate tablets 1 gm 1 tablet twice a day (taken with vitamin C) for UTI prophylaxis, and Vesicare (Solifenacin) 10 mg QD for bladder spasms He has an indwelling catheter that he irrigates and manages on his own although he appears to be experiencing recurrent catheter blockage recently that require his catheter irrigation and change He goes to urology (Dr. Molina) once a month for catheter change (5) Celiac disease: Code(s): K90.0 - Celiac disease Category: Medical Plan: Tests done previously for celiac disease came back positive Reinforced gluten-free diet to help him avoid majority of symptoms related to celiac disease (6) Vitamin D deficiency: Code(s): E55.9 - Vitamin D deficiency, unspecified Category: Medical Plan: Continue Vitamin D3 2000 units QD (7) Constipation: Code(s): K59.00 - Constipation, unspecified Category: Medical Qualifiers: Constipation type: unspecified constipation type Qualified Code(s): K59.00 - Constipation, unspecified Plan: This is likely multifactorial, including due to his quadriplegia and also possibly some degree of neurogenic bowel Reinforced increased oral fluids and dietary fiber Continue Miralax 17 gm QD and OTC Senna 8.6 mg PRN Plan To return in 1 year for his next annual physical examination Orders: Orders Complete Blood Count Auto Diff 1 Year D64.9 - Anemia, unspecified, Z00.00 - Encounter for general adult medical examination without abnormal findings Lipid Panel 1 Year E78.00 - Pure hypercholesterolemia, unspecified, Z00.00 - Encounter for general adult medical examination without abnormal findings UA CC w/rflx Micro + Cult 1 Year R30.0 - Dysuria, Z00.00 - Encounter for general adult medical examination without abnormal findings Comprehensive Talmo. Panel Fast 1 Year E78.00 - Pure hypercholesterolemia, unspecified, Z00.00 - Encounter for general adult medical examination without abnormal findings TSH reflex Free T4 1 Year E78.00 - Pure hypercholesterolemia, unspecified, Z00.00 - Encounter for general adult medical examination without abnormal findings Vitamin D 25-OH Total 1 Year E55.9 - Vitamin D deficiency, unspecified, Z00.00 - Encounter for general adult medical examination without abnormal findings
--- OUTSIDE RECORDS SUMMARY | 2024-12-18 15:08 | XMS_ITS | Patient Health Record ---
Author Organization [facility] Address [address] [place] [address] Care Team Providers Care Methods Specialist Name Role Phone Richie HARGROVE, [place] Primary Care Provider Rupa Callahan Unavailable [phone] Allergies Allergen (clinical drug ingredient) Drug/Non Drug [...] Problem Status W/U Status Risk Notes Problem [id number] Atherosclerosi s of artery of both lower extremities (I70.203) Active confirmed Vital Signs Height 5ft8in in 05/13/2024 Weight 130 lbs 05/13/2024 BMI 19.76 kg/m2 05/13/2024 Encounters Encounter Location Date Provider Diagnosis [facility] [address] [place] [address] 02/12/2024 Rupa Denton Atherosclerosis of artery of both lower extremities I70.203 ; Contusion of right foot or heel S90.31XA and Contusion of left foot or heel S90.32XA [facility] [address] [place] [address] 05/13/2024 Rupa Corrie Atherosclerosis of artery of both lower extremities I70.[address] [address] 01/15/2024 Rupaplacido Denton [facility] [address] 08/17/2024 Rupa Denton Assessments Encounter Date Diagnosis [...] Name:Rupa Johnston Rudy johnston, 12/30/2024 02:00:00 PM, [address] [place] [address], [id number], Insurance Providers Payer Name Payer Address Payer Phone Subscriber Number Group Number Insured Name Patient Relationship to Insured Coverage Start Date Coverage End Date Medicare [employer] [address] [place] [address] [id number] Barrera Ward Self - [facility] the [facility] [address] [place] [phone] [id number] Barrera Ward Self - patient is the insured Medical (General) History Medical History History ICD Code Paralysis Chicken pox Celiac disease Spinal Cord Injury C4/5 Surgical History Surgery Date(Month/Year) neck fusion 12/14/2001 kidney stones 09/17/2022
--- OUTSIDE RECORDS SUMMARY | 2024-12-18 15:08 | XMS_ITS ---
Author Organization [facility] Address [address] [place] [address] Care Team Providers Care Mill Worker Name Role Phone Richie HARGROVE [place] Primary Care Provider Rupa Callahan Unavailable [phone] Allergies Allergen (clinical drug ingredient) Drug/Non Drug [...] 05/13/2024 Encounters Encounter Location Date Provider Diagnosis [facility] [address] [place] [address] 05/13/2024 Rupa Denton Atherosclerosis of artery of both lower extremities I70.203 Assessments Encounter Date Diagnosis (ICD Code) Assessment Notes Treatment Notes Treatment Clinical Notes Section Notes 05/13/2024 Atherosclerosis of artery of both lower extremities (ICD-10 - I70.203) Plan Of Treatment Next Appt Details Follow Up: 3 Months, Reason: Provider Name:Rupa johnston, 12/30/2024 02:00:00 PM, [address] [facility], [place], [address], Procedure Notes * Category Sub-Category Detail Notes Nail Reduction Nail Reduction Trimming of dyst rophic nails performed to reduce/remove overall nail length and girth, by manual and electrical means with use of a nail nipper and/or dremel, to more viable healthy nail plate or bed tissue 6-10 (F1158-L7) Progress Notes * Barrera WARD ADOB:1980 (44 yo M)Acc No.[id number]:05/13/2024 Progress Note Patient:?Barrera Ward Provider:?Rupa Denton DPM :1980???Age:44 Y???Sex:Male Terry e:05/13/2024 Address:[address] [place], [place] [id number] Pcp:Alfonso Quiroz MD Subjective: * Chief Complaints: [...] Provider:?Rupa Denton DPM Date:? Generated for Belemi annamaria/Marine/eTransmanna on:?12/18/2024 03:07 PM EST History and Physical Notes * HPI [...]
--- OUTSIDE RECORDS SUMMARY | 2024-12-18 15:08 | XMS_ITS ---
Author Organization [facility] Address [address] [place] [address] Care Team Providers Care Vice President Of Customer Service Name Role Phone Richie HARGROVE [place] Primary Care Provider Unava ilRupa Castillo [phone] REASON FOR VISIT cx 08/18 Encounters Encounter Location Date Provider Diagnosis [address] [address] 08/17/2024 Rupa Denton Plan Of Treatment Next Appt Details Provider Name:Rupa johnston, 12/30/2024 02:00:00 PM, [address] [place], [address], Progress Notes * Maren WARD ADOB:1980 (44 yo M)Acc No.[id number]:08/17/2024 Patient:?Maren Ward :1980???Age:44 Y???Sex:Male Address:[address] [place] [address] * true * Date:? Generated for Belemi annamaria/Marine/eTransmitting on:?12/18/2024 03:07 PM EST
--- OUTSIDE RECORDS SUMMARY | 2024-12-18 15:08 | XMS_ITS ---
Author Organization [facility] Address [address] [place] [address] Care Team Providers Care Rn Military Name Role Phone Alfonso Quiroz MD Primary Care Provider UnaRupa Jamil Unavailable [phone] Allergies Allergen (clinical drug ingredient) Drug/Non Drug [...] tive Encounters Encounter Location Date Provider Diagnosis [address] [address] 08/18/2024 Rupa Denton Plan Of Treatment Next Appt Details Provider Name:Rupa johnston, 12/30/2024 02:00:00 PM, [address] [place] [address], [phone], Progress Notes * Barrera WARD ADOB:1980 (44 yo M)Acc No.[id number]:08/18/2024 Progress Note Patient:?Barrera WARD Provider:?Rupa Denton DPM :1980???Age:44 Y???Sex:Male Terry e:08/18/2024 Address:[address] [place] [address] [address] [id number] Pcp:Alfonso Quiroz MD Subjective: * Chief Complaints: [...] provider. Sign off status: Pending * Provider:?Rupa Detnon DPM Date:? Generated for Luis yin/Marine/Elen on:?12/18/2024 03:08 PM EST
== END 2024-12-18 15:57 | disposition home or self-care (01) ==
PROVIDERS: PCP Internal Medicine; Visit Provider Internal Medicine
DX: Z00.00 Encounter for general adult medical examination without abnormal findings (principal); N31.9 Neuromuscular dysfunction of bladder, unspecified; K90.0 Celiac disease; E55.9 Vitamin D deficiency, unspecified; K59.00 Constipation, unspecified

== ENCOUNTER → 2024-12-18 14:56 | Outpatient (BNVA) | payer MEDICARE, OTHER, SELFPAY | PROVIDERS: PCP Internal Medicine; Visit Provider Internal Medicine | DX: Z00.00 Encounter for general adult medical examination without abnormal findings (principal); N31.9 Neuromuscular dysfunction of bladder, unspecified; K90.0 Celiac disease; E55.9 Vitamin D deficiency, unspecified | CPT/HCPCS: 96127; 99396 ==

== ENCOUNTER 2025-03-10 09:45 | Outpatient (AMB) | payer MEDICARE, OTHER, SELFPAY ==
[2025-03-10 09:54] VITALS: BP 110/72; PULSE 73; TEMP 36.7; O2SAT 98
--- NOTE | 2025-03-10 09:54 | MHC.OFFWIV ---
Intake Vital Signs 03/10/25 09:54 Height 5 ft 8 in BMI Reason not done Patient refused/unable BP 110/72 Blood Pressure Location Lt brachial Position Sitting Pulse 73 Pulse Source Pulse Oximeter Temp 98.1 F Temp Source Oral Pulse Oximetry (%) 98 Oxygen Delivery Method Room Air Intake Visit Reasons: EP cold symptoms * Patient Tobacco Use Status: Never used Tobacco Allergies No Known Allergies Allergy (Verified 03/10/25 09:54) Do you need a note to return to daycare/school/sports/work: Yes HPI HPI Comments History of Present Illness Details History of Present Illness - The patient is a 44-year-old male presenting with respiratory symptoms persisting for over a week, suggestive of an acute upper respiratory infection with potential lung involvement suggesting pneumonia. - Previous history includes a spinal cord injury affecting diaphragmatic function, complicating respiratory effort, and a prior episode of atelectasis in the left lung. - Initial symptoms included severe sinus pressure that has since subsided, while wheezing, primarily nocturnal and positional in nature, has persisted. - Lung examination by a school nurse indicated diminished breath sounds on the right side. - There have been no fevers reported, and baseline oxygen saturation has been stable at 98%. - The patient has expressed concern about shortness of breath, alleviated upon standing and moving, and currently uses an albuterol inhaler with unknown expiration status. Physical Exam General: Cooperative, healthy appearing, comfortable, no acute distress and well developed Orientation: Patient oriented x3 Limitations: quadriplegia in wheelchair Head: Normal to inspection Ears: Hearing grossly normal bilaterally, EAC and TM's normal bilaterally Nose: Normal External nose present Face and sinus: Normal facial exam, no TTP sinuses Eyes: Appearance normal, both eyes and all related structures Neck: Normal visual inspection and Yes full ROM Respiratory: left side dim, Clear to auscultation bilaterally otherwise. Cardiovascular: Regular rate and rhythm. Normal S1 and S2 Skin: No rashes or lesions noted Neuro: Patient oriented x3 Extremities: Normal to inspection [facility] Medical History Constipation Vitamin D deficiency Celiac disease Skin rash Urinary bladder stone 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 Mother No problems noted. Other Mental health problem Social History Housing: House Alcohol intake: never Patient Tobacco Use Status: Never used Tobacco e-Cigarette/Vaping Use: Never Used Second Hand Smoke Exposure: No service: No Current occupational status: employed Cognitive needs: No Hearing needs: No Vision needs: No Review of Systems Const All systems reviewed & are unremarkable except as noted in HPI and below Physical Exam Vital Signs: Last Vital Signs Temp 98.1 F 03/10/25 09:54 Pulse 73 03/10/25 09:54 BP 110/72 03/10/25 09:54 Pulse Ox 98 03/10/25 09:54 Oxygen Delivery Method Room Air 03/10/25 09:54 Assessment & Plan Assessment & Plan (1) Lower respiratory infection (e.g., bronchitis, pneumonia, pneumonitis, pulmonitis): Code(s): J22 - Unspecified acute lower respiratory infection Plan: A course of prednisone 40 mg daily for five days is prescribed to address inflammation and aid respiratory function, with counseling on timing and potential side effects. A renewed albuterol inhaler will be prescribed for symptom management, ensuring use with a spacer for proper delivery. A chest X-ray is ordered to rule out pneumonia, with subsequent antibiotic therapy contingent upon results. The plan emphasizes monitoring for infection due to prednisone's immunosuppressive effects, alongside patient's self-monitoring of symptoms. Follow-up actions will depend on chest X-ray outcomes and symptom progression. Assisted patient with bladder flush, had sediment, now patent. Patient was informed and verbally consented to the use of an ambient scribe for clinic note documentation during this visit. Orders: Orders XR chest 2V Today R05.9 - Cough, unspecified Medications: New prednisone 40 mg (2 x 20 mg) PO QAM 10 tabs 0RF albuterol sulfate 90 mcg/actuation 2 puffs inhalation Q6H PRN 8.5 grams 0RF shortness of breath or wheezing or cough Coding Level of Care Code Est Pt Level 4 (15259) Diagnoses Lower respiratory infection (e.g., bronchitis, pneumonia, pneumonitis, pulmonitis) J22
--- OUTSIDE RECORDS SUMMARY | 2025-03-10 10:23 | XMS_ITS | Patient Health Record ---
Author Organization [facility] Address [address] [place] [address] Care Team Providers Care Shoe Stitcher Name Role Phone Richie HARGROVE, [place] Primary Care Provider Rupa Callahan Unavailable [phone] Allergies Allergen (clinical drug ingredient) Drug/Non Drug Allergy documented on EMR Reaction Allergy Type Onset Date Status sulfamethoxazole / trimethoprim Bactrim Unknown Drug Allergy Active Reason For Referral No Information Medications Medication SIG (Take, Route, Fr equency, Duration) Notes Start Date End Date Status Magnesium Citrate Ac tive Senna Active VESIcare 10 MG 1 tablet Orally Once a day for 30 day(s) Active Baclofen Active Social History Tobacco Use: Social History [...] Problem Status W/U Status Risk Notes Problem [id number] Atherosclerosi s of artery of both lower extremities (I70.203) Active confirmed Vital Signs Height 5ft8in in 05/13/2024 Weight 130 lbs 05/13/2024 BMI 19.76 kg/m2 05/13/2024 Encounters Encounter Location Date Provider Diagnosis [facility] [address] [place] [address] 05/13/2024 Rupa Denton Atherosclerosis of artery of both lower extremities I70.203 [facility] [address] [place] [address] 08/17/2024 Rupa Denton [facility] [address] [place] [address] 12/30/2024 Rupaplacido Denton [facility] [address] [place] [address] 01/22/2025 Rupa Denton Assessments Encounter Date Diagnosis (ICD Code) Assessment Notes Treatment Notes Treatment Clinical Notes Section Notes 05/13/2024 Atherosclerosis of artery of both lower extremities (ICD-10 - I70.203) Plan Of Treatment Next Appt Details Provider Name:Rupa Johnston Rudy johnston, 04/06/2025 03:30:00 PM, [address] [place] [address], [phone], Insurance Providers Payer Name Payer Address Payer Phone Subscriber Number Group Number Insured Name Patient Relationship to Insured Coverage Start Date Coverage End Date Medicare National [employer] [address] [place] [address] [id number] Barrera Ward Self - patient is the insured [facility] [address] [place] [id number] [phone] [id number] Barrera Ward Self - patient is the insured Medical (General) History Medical History History ICD Code Paralysis Chicken pox Celiac disease Spinal Cord Injury C4/5 Surgical History Surgery Date(Month/Year) neck fusion 12/14/2001 kidney stones 09/17/2022
--- OUTSIDE RECORDS SUMMARY | 2025-03-10 10:23 | XMS_ITS ---
[facility] Address [address] [place] [address] Care Team Providers Care Payment Rep Name Role Phone Alfonso Quirzo MD Primary Care Provider UnaRupa Jamil Unavailable [phone] Allergies Allergen (clinical drug ingredient) Drug/Non Drug Allergy documented on EMR Reaction Allergy Type Onset Date Status sulfamethoxazole / trimethoprim Bactrim Unknown Drug Allergy Active Medications Medication SIG (Take, Route, Fr equency, Duration) Notes Start Date End Date Status Magnesium Citrate Ac tive Senna Active VESIcare 10 MG 1 tablet Orally Once a day for 30 day(s) Active Baclofen Active Encounters Encounter Location Date Provider Diagnosis [address] [address] 12/30/2024 Rupa Denton Plan Of Treatment Next Appt Details Provider Name:Rupa johnston, 04/06/2025 03:30:00 PM, [address] [place] [address], [phone], Progress Notes * Barrera WARD ADOB:1980 (44 yo M)Acc No.[id number]:12/30/2024 Progress Note Patient:?Barrera WARD Provider:?Rupa Denton DPM :1980???Age:44 Y???Sex:Male Terry e:12/30/2024 [address] [id number] Pcp:Alfonso Quiroz MD Subjective: * Chief Complaints: * ??? * HPI: ???At Risk footcare:?Pt States Last PCP Visit:?Date?12/05/2022 * Medical History:?Paralysis, Chicken pox, Celiac disease, [...] off status: Pending * Provider:?Rupa Denton DPM Date:?02/2025 Generated for Luis yin/Marine/Marycarmenitting on:?03/10/2025 10:23 AM EDT History and Physical Notes * HPI (History of Present Illness) Category Sub-Category Detail Notes Category Not es At Risk footcare Pt States Last PCP Visit: Date:
--- OUTSIDE RECORDS SUMMARY | 2025-03-10 10:23 | XMS_ITS ---
Author Organization [facility] Akil Mojicaley Address [address] [place] [address] Care Team Providers Care Auger Machine Offbearer Name Role Phone Alfonso Quiroz MD Primary Care Provider UnaRupa Jamil [phone] Encounters Encounter Location Date Provider Diagnosis [address] [address] 01/26/2025 Rupa Denton Plan Of Treatment Next Appt Details Provider Name:Rupa johnston, 04/06/2025 03:30:00 PM, [address] [place], [address], Progress Notes * Barrera WARD ADOB:1980 (44 yo M)Acc No.[id number]:01/26/2025 Progress Note Patient:?WARD Barrera Magdalene Provider:?Rupa Denton DPM :1980???Age:44 Y???Sex:Male Terry e:01/26/2025 Address: [address] [place] [address] [id number] Pcp:Alfonso Quiroz MD Subjective: * Chief Complaints: * ??? * Medical History:? Objective: * Vitals:? Assessment: Plan: * Treatment: * Images: * The named appointment provid er may or may not be the originator of this progress note, and it is not deemed complete until electronically signed by the appointment provider. Sign off status: Pending * Provider:?Rupa Denton DPM Date:?10/2024 Generated for Luis yin/Marine/Elen on:?03/10/2025 10:23 AM EDT
--- OUTSIDE RECORDS SUMMARY | 2025-03-10 10:23 | XMS_ITS ---
Author Organization [facility] Akil Mojicaley Address [address] [place] [address] Care Team Providers Care Waiter/Waitress Captain Name Role Phone Richie HARGROVE Elizabeth Primary Care Provider Unava ilRupa Castillo [phone] REASON FOR VISIT Cx appt Encounters Encounter Location Date Provider Diagnosis [address] [address] 01/22/2025 Rupa Denton Plan Of Treatment Next Appt Details Provider Name:Rupa johnston, 04/06/2025 03:30:00 PM, [address] [place], [address], Progress Notes * Maren WARD ADOB:1980 (44 yo M)Acc No.[id number]:01/22/2025 Patient:?Maren WARD :1980???Age:44 Y???Sex:Male Address:[address] [place] [address] * true * Date:? Generated for Printi annamaria/Marine/eTransmitting on:?03/10/2025 10:23 AM EDT
== END 2025-03-10 12:21 | disposition home or self-care (01) ==
PROVIDERS: PCP Internal Medicine; Visit Provider Physician Assistant
DX: J22 Unspecified acute lower respiratory infection (principal)

== ENCOUNTER 2025-03-10 09:45 | Outpatient (REF) | payer MEDICARE, OTHER, SELFPAY ==
--- NOTE | ~2025-03-10 | XR_ITS ---
EXAMINATION: XR CHEST CLINICAL INFORMATION: R05.9 - Cough, unspecified COMPARISON: 12/03/20. TECHNIQUE: 2 views of the chest were obtained. FINDINGS: The cardiac, hilar, and mediastinal contours are normal. The lungs are diffusely hyperaerated, however clear bilaterally. There is no pneumothorax or pleural effusion. There is no focal osseous or soft tissue abnormality. Partially imaged cervical fusion device. Partially imaged IVC filter. XR/XR chest 2V IMPRESSION: COPD. No active superimposed disease. Electronically signed by: Jerry Mendez MD 03/10/2025 12:30 PM EDT
== END 2025-03-10 09:46 | disposition home or self-care (01) ==
LOC: HO.HMGCX 09:45
PROVIDERS: PCP Internal Medicine; Visit Provider Physician Assistant
DX: J22 Unspecified acute lower respiratory infection (principal); R05.9 Cough, unspecified
CPT/HCPCS: 71046; 99212

== ENCOUNTER → 2025-03-10 10:31 | Outpatient (BNV) | payer MEDICARE, OTHER, SELFPAY | PROVIDERS: PCP Internal Medicine; Visit Provider Radiology Diagnostic Radiology | DX: R05.9 Cough, unspecified (principal) | CPT/HCPCS: 71046 ==

== ENCOUNTER 2025-05-25 12:35 | Outpatient (AMB) | payer MEDICARE, OTHER, SELFPAY ==
--- OUTSIDE RECORDS SUMMARY | 2025-05-25 13:20 | XMS_ITS | Encounter Summary ---
Author Organization [facility] Address [address] [place] [address] Phone Care Team Providers Care Vibration Engineer Name Role Phone Alfonso Quiroz MD Primary Care Provider [phone] Encounter Details Date Type Department Care Team (Latest Contact Info) Description 06/19/2023 Transcribe Orders Virtual Department [address] [place] [address] Kathrin Puga PA-C [address] [place] [phone] [email or web address] Other neuromuscular dysfunction of bladder (Primary Dx); Calculus, bladder Social History Tobacco Use Types Packs/Day Years Used Date Smoking Tobacco: Never Education Answer Date Recorded Are you interested in more education? Not on shannon e 03/03/2023 Are you concerned about learning? Not on file 03/03/2023 No 03/03/2023 No 03/03/2023 Digital Access Answer Date Recorded No 03/23/2023 No 03/23/2023 No 03/23/2023 Reliable internet access at home? Not on file 03/23/2023 Device with a working camera? Not on file Sex and Gender Information Value Date Recorded Sex Assigned at Not on file Legal Sex Male 6:48 PM EST Gender Identity Not on file Sexual Orientation Not on file documented as of this encounter Plan of Treatment Not on file documented as of this encounter Results * US Kidneys and Bladder (06/20/2023 4:28 PM EDT) Anatomical Region Laterality Modality Abdomen, Kidney Ultrasound 06/20/2023 4:55 PM EDT Impressions 06/21/2023 7:09 AM EDT No hydronephrosis or shadowing nephrolithiasis. Bladder is collapsed around a urinary catheter. Narrative 06/21/2023 7:09 AM EDT US KIDNEYS AND BLADDER TECHNIQUE: Kidney Ultrasound. COMPARISON: USKID1 ; CTABP+ FINDINGS: Right Kidney: Size: 10.5 cm Normal. No stones or hydronephrosis. Left Kidney: Size: 10.2 cm Normal. No stones or hydronephrosis. Bladder: Collapsed around a urinary catheter. Procedure Note Aman Roberts MD - 06/21/2023 US KIDNEYS AND BLADDER TECHNIQUE: Kidney Ultrasound. COMPARISON: USKID1 ; CTABP+ FINDINGS: Right Kidney: Size: 10.5 cm Normal. No stones or hydronephrosis. Left Kidney: Size: 10.2 cm Normal. No stones or hydronephrosis. Bladder: Collapsed around a urinary catheter. IMPRESSION: No hydronephrosis or shadowing nephrolithiasis. Bladder is collapsed around a urinary catheter. us Kathrin Puga PA-C IMG US RENAL Final R esult documented in this encounter Visit Diagnoses Diagnosis Other neuromuscular dysfunction of bladder- Primary Calculus, bladder Other calculus in bladder Other neuromuscular dysfunction of bladder Calculus, bladder Other calculus in bladder documented in this encounter Care Teams Vibration Engineer Relationship Specialty Start Date End Date Alfonso Quiroz MD [address] [place] [address] [place] [address] PCP - General Internal Medicine 03/22/20 documented as of this encounter Additional Source Comments The information contained in this document represents components of the legal health record. It is not the complete legal health record.[facility]
--- OUTSIDE RECORDS SUMMARY | 2025-05-25 13:20 | XMS_ITS | Patient Health Record ---
[facility] Address [address] [place] [address] Care Team Providers Care Display Screen Fabricator Name Role Phone Richie HARGROVE, [place] Primary Care Provider Rupa Clalahan Unavailable [phone] Allergies Allergen (clinical drug ingredient) Drug/Non Drug Allergy documented on EMR Reaction Allergy Type Onset Date Status sulfamethoxazole / trimethoprim Bactrim Unknown Drug Allergy Active Reason For Referral No Information Medications Medication SIG (Take, Route, Fr equency, Duration) Notes Start Date End Date Status Baclofen Active Magnesium Citrate Ac tive VESIcare 10 MG 1 tablet Orally Once a day; Duration: 30 day(s) Active Senna Active Immunizations Vaccine Route Administration Date Status Comme nts Influenza Unknown 06/28/2024 Administered Social History Tobacco Use: Social History Observation [...] Problem Status W/U Status Risk Notes Problem Atherosclerosis of artery of both lower extremities (I70.203) Active confirmed Vital Signs Blood pressure diastolic 80 mm Hg 04/06/2025 Height 5ft8in in 04/06/2025 Blood pressure systolic 123 mm Hg 04/06/2025 Weight 130 lbs 04/06/2025 BMI 19.76 kg/m2 04/06/2025 Encounters Encounter Location Date Provider Diagnosis [facility] [address] 04/06/2025 Rupa Denton Atherosclerosis of artery of both lower extremities I70.203 [facility] [address] 08/17/2024 Rupa Denton [facility] [address] 12/30/2024 Rupa Denton [facility] [address] 01/22/2025 Rupa Denton Assessments Encounter Date Diagnosis (ICD Code) Assessment Notes Treatment Notes Treatment Clinical Notes Section Notes 04/06/2025 Atherosclerosis of artery of both lower extremities (ICD-10 - I70.203) Plan Of Treatment Next Appt Details Provider Name:Vanessa cheung, 05/27/2025 09:30:00 AM, [address] [place] [address], [phone], Provider Name:Rupa johnsotn, 07/21/2025 03:30:00 PM, [address] [place] [address], [phone], Insurance Providers Payer Name Payer Address Payer Phone Subscriber Number Group Number Insured Name Patient Relationship to Insured Coverage Start Date Coverage End Date Medicare National Govt Sv[employer] [address] [place] [address] [id number] Maren Ward Self - patient is the insured [facility] [address] [place] [phone] [id number] Maren Ward Self - patient is the insured Medical (General) History Medical History History ICD Code Paralysis Chicken pox Celiac disease Spinal Cord Injury C4/5 Surgical History Surgery Date(Month/Year) neck fusion 12/14/2001 kidney stones 09/17/2022
--- NOTE | 2025-05-25 13:51 | MHC.OFFWIV ---
Intake Vital Signs 05/25/25 13:55 BMI Reason not done Patient refused/unable BP 92/60 Blood Pressure Location Rt brachial Position Sitting Pulse 61 Pulse Source Pulse Oximeter Temp 98.2 F Temp Source Oral Pulse Oximetry (%) 95 Oxygen Delivery Method Room Air Intake Visit Reasons: EP fall...LT ankle, knee, foot pain Intake Note: presents with pain to LT foot,LT ankle and around LT knee after falling yesterday Patient Tobacco Use Status: Never used Tobacco Allergies ciprofloxacin (From Cipro) Allergy (Mild, Verified 05/25/25 13:53) rash HPI HPI Comments History of Present Illness Details History - The patient is a 45-year-old male with a past med hx of neurogenic bladder, quadriplegic 2/2 spinal cord injury presenting with left ankle, foot and knee injuries following a fall in the shower yesterday. - The patient reports a fall in the shower yesterday, he denies any chest pain, lightheadedness or shortness of breath, it was a mechanical fall. - The patient has taken Oxycodone for pain relief, which has been effective. He does have more at home. - He is unable to bear any weight on it. Physical Exam General: Cooperative, healthy appearing, comfortable, no acute distress and well developed Orientation: Patient oriented x3 Limitations: wheelchair Head: Normal to inspection Ears: Hearing grossly normal bilaterally Nose: Normal External nose present Face and sinus: Normal facial exam Mouth: normal, moist oral mucosa Eyes: Appearance normal, both eyes and all related structures Neck: Normal visual inspection and Yes full ROM Respiratory: Normal respiratory effort and able to speak in complete sentences. Skin: no rashes or lesions noted Neuro: Patient oriented x3 Extremities: left knee with slight edema, TTP lateral/posterior area, negative patellar ballottment, full ROM with some pain, joint laxity lateral and medially, - ant/posterior draw. no TTP of tib/fib, no ttp posterior or lateral malleolus, no ttp navicular bone of left foot, left foot with edema and ttp distal foot into 4 and 5 digits, all toes vascularly intact, LLE feeling intact. No skin changes or areas of ecchymosis. 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 Mother No problems noted. Other Mental health problem Social History Housing: House Alcohol intake: never Patient Tobacco Use Status: Never used Tobacco e-Cigarette/Vaping Use: Never Used Second Hand Smoke Exposure: No service: No Current occupational status: employed Cognitive needs: No Hearing needs: No Vision needs: No Review of Systems Const All systems reviewed & are unremarkable except as noted in HPI and below Physical Exam Vital Signs: Last Vital Signs Temp 98.2 F 05/25/25 13:55 Pulse 61 05/25/25 13:55 BP 92/60 05/25/25 13:55 Pulse Ox 95 05/25/25 13:55 Oxygen Delivery Method Room Air 05/25/25 13:55 Assessment & Plan Assessment & Plan (1) Fall: Code(s): W19.XXXA - Unspecified fall, initial encounter Qualifiers: Encounter type: initial encounter Qualified Code(s): W19.XXXA - Unspecified fall, initial encounter Plan: Plan Patient was informed and verbally consented to the use of an ambient scribe for clinic note documentation during this visit 1. Left foot/ankle/knee injury 2/2 fall with inability to bear weight. - Plan to obtain x-rays of the left ankle to assess for fractures or other injuries. - Plan to obtain x-rays of the left knee to evaluate for any structural damage. - Patient advised to continue using pain relief medication as needed, with caution regarding constipation. - left foot ankle and knee x-rays all show no fracture or dislocation, patient has a boot that he is wearing recommended weaning off of this in 5-7 days and making sure that he is doing [id number] exercises with the left lower extremity. Rest ice and ibuprofen. - If no improvement in his pain over the next 2 weeks, he should follow up with his PCP or return to the walk-in clinic for possible referral to Orthopedics versus physical therapy. Orders: Orders XR foot LT min 3V Today W19.XXXA - Unspecified fall, initial encounter Coding Level of Care Code Est Pt Level 4 (56122) Diagnoses Fall, initial encounter W19.XXXA Encounter type: initial encounter
[2025-05-25 13:55] VITALS: BP 92/60; PULSE 61; TEMP 36.8; O2SAT 95
== END 2025-05-25 15:23 | disposition home or self-care (01) ==
PROVIDERS: PCP Internal Medicine; Visit Provider Physician Assistant
DX: M25.572 Pain in left ankle and joints of left foot (principal); M25.562 Pain in left knee; W19.XXXA Unspecified fall, initial encounter

== ENCOUNTER 2025-05-25 12:35 | Outpatient (REF) | payer MEDICARE, OTHER, SELFPAY ==
--- NOTE | ~2025-05-25 | XR_ITS ---
EXAMINATION: XR KNEE, LEFT CLINICAL INFORMATION: W19.XXXA - Unspecified fall, initial encounter COMPARISON: None available. TECHNIQUE: Two views of the left knee. FINDINGS: No fracture or joint effusion. Alignment is anatomic. Joint spaces are maintained. No abnormal soft tissue calcification. XR/XR knee LT 2V IMPRESSION: Normal left knee. Electronically signed by: Jerry Mendez MD 05/25/2025 03:10 PM EDT
--- NOTE | ~2025-05-25 | XR_ITS ---
EXAMINATION: XR FOOT, LEFT CLINICAL INFORMATION: W19.XXXA - Unspecified fall, initial encounter COMPARISON: None available. TECHNIQUE: AP, lateral, and oblique views of the left foot. FINDINGS: There is mild diffuse osteopenia. There is no fracture, dislocation, or suspicious bone lesion. There is normal alignment. Joint spaces are preserved. Normal plantar arch. The midfoot and hindfoot appear normal. There is minimal dorsal forefoot soft tissue swelling. XR/XR foot LT min 3V IMPRESSION: No acute bony abnormalities. Minimal dorsal forefoot soft tissue swelling. Electronically signed by: Jerry Mendez MD 05/25/2025 03:09 PM EDT
--- NOTE | ~2025-05-25 | XR_ITS ---
EXAMINATION: XR ANKLE, left CLINICAL INFORMATION: W19.XXXA - Unspecified fall, initial encounter COMPARISON: None available. TECHNIQUE: AP, lateral, and mortise views lower extremity joint, ankle. FINDINGS: There is osteopenia. Ankle mortise is congruent. There is no widening of the syndesmosis. Talar dome is intact. There are no plantar calcaneal enthesiophytes. XR/XR ankle LT min 3V IMPRESSION: Osteopenia. Electronically signed by: Truong Garcia MD 05/25/2025 03:11 PM EDT
== END 2025-05-25 12:36 | disposition home or self-care (01) ==
LOC: HO.HMGCX 12:35
PROVIDERS: PCP Internal Medicine; Visit Provider Physician Assistant
DX: S99.922A Unspecified injury of left foot, initial encounter (principal); S99.912A Unspecified injury of left ankle, initial encounter; W19.XXXA Unspecified fall, initial encounter
CPT/HCPCS: 73560; 73610; 73630; 99212

== ENCOUNTER → 2025-05-25 14:30 | Outpatient (BNV) | payer MEDICARE, OTHER, SELFPAY | PROVIDERS: PCP Internal Medicine; Visit Provider Radiology Diagnostic Radiology | DX: M85.872 Other specified disorders of bone density and structure, left ankle and foot (principal); M25.562 Pain in left knee | CPT/HCPCS: 73560; 73630 ==